=== PATIENT | male | born 1945 | race Hispanic/Latino ===

== ENCOUNTER 2020-06-30 12:56 | Observation (INO) | payer MEDICARE, OTHER ==
[~2020-06-30] VITALS: Ht 165.1 cm; Wt 68.0 kg
[2020-06-30 14:06] LABS: BASOPHILS % 0.5 % (0.0-1.0); EOSINOPHILS # (AUTO) 0.4 (0.0-0.4); EOSINOPHILS % 4.9 % (0.0-6.0); HEMATOCRIT 45.3 % (38.2-49.6); HEMOGLOBIN 14.3 g/dL (14.0-18.0); LYMPHOCYTES # (AUTO) 2.3 (1.0-3.2); MEAN CORPUSCULAR HEMOGLOBIN 26.5 pg (28-32); MEAN CORPUSCULAR HGB CONC 31.6 g/dL (31-35); MEAN CORPUSCULAR VOLUME 83.9 fL (81-99); MONOCYTES # (AUTO) 0.6 (0.2-0.8); MONOCYTES % 8.1 % (4.4-11.3); NEUTROPHILS # (AUTO) 4.5 (2.1-6.9); NEUTROPHILS % 57.2 % (38.7-80.0); PLATELET COUNT 314 x10e3/uL (140-360); RED CELL DISTRIBUTION WIDTH 15.8 % (11.7-14.4)
[2020-06-30 14:22] LABS: ANION GAP 15.5 mmol/L (8-16); BLOOD UREA NITROGEN 12 mg/dL (7-26); BUN/CREATININE RATIO 15 (6-25); CARBON DIOXIDE 25 mmol/L (22-29); CHLORIDE 103 mmol/L (98-107); CREATININE, SERUM 0.79 mg/dL (0.72-1.25); EST GLOMERULAR FILTRATION RATE > 60 ML/MIN (60-); GLUCOSE 232 mg/dL (74-118); POTASSIUM 4.5 mmol/L (3.5-5.1); SODIUM 139 mmol/L (136-145)
[2020-06-30 15:30] VITALS: BP 141/74
[2020-06-30] MEDS ORDERED: QUETIAPINE FUM100 MG PEG (16:32)
[2020-06-30] MEDS ORDERED: METFORMIN HCL500 MG PEG (16:32)
[2020-06-30] MEDS ORDERED: DONEPEZIL HCL10 MG PEG (16:32)
[2020-06-30] MEDS ORDERED: METOPROLOL TART50 MG PEG (16:32)
[2020-06-30] MEDS ORDERED: MIRTAZAPINE45 MG PEG (16:32)
[2020-06-30] MEDS ORDERED: OMEPRAZOLE40 MG PEG (16:32)
[2020-06-30] MEDS ORDERED: CLOPIDOGREL75 MG PEG (16:32)
[2020-06-30] MEDS ORDERED: JANUVIA100 MG PEG (16:32)
[2020-06-30] MEDS ORDERED: DEXTROSE 50% SYRINGE 50 ML IV PRN (18:30)
[2020-06-30] MEDS: SODIUM CHLORIDE 0.9% 1000ML 1,000 ML IV SCH ×2 (18:35→21:57)
[2020-06-30] MEDS ORDERED: HYDRALAZINE HCL 20 MG/ML VIAL IV PRN (19:00)
[2020-06-30 20:00] VITALS: BP 95/60
[2020-06-30] MEDS: INSULIN REGULAR, HUMAN 100 UNIT/1 ML 3ML VIAL SQ SCH (20:54)
[2020-06-30 21:00] VITALS: BP 95/60
[2020-06-30] MEDS ORDERED: MIRTAZAPINE 15 MG TAB PEG SCH (21:00)
[2020-06-30] MEDS ORDERED: DONEPEZIL HCL 5 MG TAB PEG SCH (21:00)
[2020-07-01] VITALS (7 sets, daily range): BP systolic 114–180; BP diastolic 58–89
[2020-07-01] MEDS ORDERED: GUAIFENESIN/DEXTROMETHORPHAN LIQD 5 ML UDC NG PRN (03:45)
[2020-07-01] MEDS: SODIUM CHLORIDE 0.9% 1000ML 1,000 ML IV SCH (06:00)
[2020-07-01 06:12] LABS: BASOPHILS % 0.4 % (0.0-1.0); EOSINOPHILS # (AUTO) 0.5 (0.0-0.4); EOSINOPHILS % 5.5 % (0.0-6.0); HEMATOCRIT 43.1 % (38.2-49.6); HEMOGLOBIN 13.6 g/dL (14.0-18.0); LYMPHOCYTES # (AUTO) 2.7 (1.0-3.2); LYMPHOCYTES % 28.8 % (18.0-39.1); MEAN CORPUSCULAR HEMOGLOBIN 25.9 pg (28-32); MEAN CORPUSCULAR HGB CONC 31.6 g/dL (31-35); MEAN CORPUSCULAR VOLUME 82.1 fL (81-99); MONOCYTES # (AUTO) 0.8 (0.2-0.8); MONOCYTES % 9.1 % (4.4-11.3); NEUTROPHILS # (AUTO) 5.2 (2.1-6.9); NEUTROPHILS % 55.9 % (38.7-80.0); PLATELET COUNT 286 x10e3/uL (140-360); RED BLOOD COUNT 5.25 x10e6/uL (4.3-5.7); RED CELL DISTRIBUTION WIDTH 15.8 % (11.7-14.4)
[2020-07-01 06:37] LABS: INR 0.95; PARTIAL THROMBOPLASTIN TIME 27.6 seconds (23.8-35.5); PROTHROMBIN TIME 13.2 seconds (11.9-14.5)
[2020-07-01 06:41] LABS: ANION GAP 14.3 mmol/L (8-16); BLOOD UREA NITROGEN 12 mg/dL (7-26); BUN/CREATININE RATIO 18 (6-25); CALCIUM 8.6 mg/dL (8.4-10.2); CARBON DIOXIDE 21 mmol/L (22-29); CHLORIDE 107 mmol/L (98-107); CREATININE, SERUM 0.67 mg/dL (0.72-1.25); EST GLOMERULAR FILTRATION RATE > 60 ML/MIN (60-); GLUCOSE 188 mg/dL (74-118); POTASSIUM 4.3 mmol/L (3.5-5.1); SODIUM 138 mmol/L (136-145)
[2020-07-01] MEDS: INSULIN REGULAR, HUMAN 100 UNIT/1 ML 3ML VIAL SQ SCH ×3 (07:30→16:30)
[2020-07-01] MEDS ORDERED: METOPROLOL TARTRATE 50 MG TAB PEG SCH (09:00)
[2020-07-01] MEDS ORDERED: PANTOPRAZOLE SOD 40 MG TABEC PO SCH (09:00)
[2020-07-01] MEDS ORDERED: SITAGLIPTIN 100 MG TAB PEG SCH (09:00)
[2020-07-01] MEDS: QUETIAPINE FUMARATE 100 MG TAB PEG SCH ×2 (09:31→17:49)
[2020-07-01] MEDS ORDERED: ALBUTEROL SULF 0.083% NEB SOLN 3 ML NEB ONE (12:22)
== END 2020-07-01 19:42 | disposition home or self-care (01) ==
LOC: ER 13:01 → ERHOLD 13:37 → INTOOBSV 13:37 → MED/SURG3 15:41
PROVIDERS: ADMIT Internal Medicine; ATTEND Internal Medicine
DX: K94.23 Gastrostomy malfunction (principal); R13.10 Dysphagia, unspecified; I69.398 Other sequelae of cerebral infarction; I10 Essential (primary) hypertension; E11.9 Type 2 diabetes mellitus without complications; J40 Bronchitis, not specified as acute or chronic; I69.30 Unspecified sequelae of cerebral infarction; Z86.711 Personal history of pulmonary embolism; Z79.84 Long term (current) use of oral hypoglycemic drugs; I67.2 Cerebral atherosclerosis; F01.50 Vascular dementia, unspecified severity, without behavioral disturbance, psychotic disturbance, mood disturbance, and anxiety; K44.9 Diaphragmatic hernia without obstruction or gangrene; Z20.822 Contact with and (suspected) exposure to COVID-19
CPT/HCPCS: 36415 ×2; 43241; 71045; 80048 ×2; 82948 ×2; 85025 ×2; 85610; 85730; 96372; 99251; 99284; G0378 ×2; J1817; J7030 ×2; S0164; U0002; 43235; 43246

== ENCOUNTER 2020-10-04 17:20 | Emergency (ER) | payer MEDICARE, OTHER ==
[~2020-10-04] VITALS: Ht 167.6 cm; Wt 68.0 kg
[~2020-10-04 17:20] MED LIST: CLOPIDOGREL75 MG PEG; DONEPEZIL HCL10 MG PEG; JANUVIA100 MG PEG; METFORMIN HCL500 MG PEG; METOPROLOL TART50 MG PEG; MIRTAZAPINE45 MG PEG; OMEPRAZOLE40 MG PEG; QUETIAPINE FUM100 MG PEG
[2020-10-04] MEDS ORDERED: CEFEPIME HCL 1 GM VIAL IV ONE (18:00)
[2020-10-04] MEDS ORDERED: SODIUM CHLORIDE 0.9% 1000ML 1,000 ML IV ONE (18:00)
[2020-10-04] MEDS ORDERED: CEFEPIME HCL 1GM 1 GM in SODIUM CHLORIDE 0.9% 50ML 50 ML IV ONE ×2 (18:15→21:00)
[2020-10-04] MEDS ORDERED: VANCOMYCIN 1GM/NS 250 ML 250 ML IV ONE (18:15)
[2020-10-04 18:40] LABS: BASOPHILS % 0.4 % (0.0-1.0); EOSINOPHILS # (AUTO) 0.4 (0.0-0.4); EOSINOPHILS % 4.6 % (0.0-6.0); HEMATOCRIT 49.5 % (38.2-49.6); HEMOGLOBIN 15.6 g/dL (14.0-18.0); LYMPHOCYTES # (AUTO) 2.2 (1.0-3.2); LYMPHOCYTES % 26.6 % (18.0-39.1); MEAN CORPUSCULAR HEMOGLOBIN 25.9 pg (28-32); MEAN CORPUSCULAR HGB CONC 31.5 g/dL (31-35); MEAN CORPUSCULAR VOLUME 82.1 fL (81-99); MONOCYTES # (AUTO) 0.6 (0.2-0.8); MONOCYTES % 7.1 % (4.4-11.3); NEUTROPHILS # (AUTO) 5.1 (2.1-6.9); NEUTROPHILS % 60.9 % (38.7-80.0); PLATELET COUNT 335 x10e3/uL (140-360); RED BLOOD COUNT 6.03 x10e6/uL (4.3-5.7); RED CELL DISTRIBUTION WIDTH 15.9 % (11.7-14.4)
[2020-10-04 18:59] LABS: ALANINE AMINOTRANSFERASE 34 IU/L (0-55); ALBUMIN 3.8 g/dL (3.5-5.0); ALBUMIN/GLOBULIN RATIO 0.8 (0.8-2.0); ALKALINE PHOSPHATASE 122 IU/L (40-150); ANION GAP 19.4 mmol/L (8-16); BLOOD UREA NITROGEN 17 mg/dL (7-26); BUN/CREATININE RATIO 20 (6-25); CARBON DIOXIDE 22 mmol/L (22-29); CHLORIDE 99 mmol/L (98-107); CREATININE, SERUM 0.87 mg/dL (0.72-1.25); EST GLOMERULAR FILTRATION RATE > 60 ML/MIN (60-); GLUCOSE 203 mg/dL (74-118); POTASSIUM 4.4 mmol/L (3.5-5.1); SODIUM 136 mmol/L (136-145)
[2020-10-04] MEDS ORDERED: SODIUM CHLORIDE 0.9% 1000ML 1,000 ML IV SCH (19:15)
== END 2020-10-05 00:42 | disposition other institution (70) ==
LOC: ER 17:40
DX: A41.9 Sepsis, unspecified organism (principal); E11.52 Type 2 diabetes mellitus with diabetic peripheral angiopathy with gangrene; E11.65 Type 2 diabetes mellitus with hyperglycemia; I96 Gangrene, not elsewhere classified; L03.116 Cellulitis of left lower limb; F03.90 Unspecified dementia, unspecified severity, without behavioral disturbance, psychotic disturbance, mood disturbance, and anxiety; Z20.822 Contact with and (suspected) exposure to COVID-19; E03.9 Hypothyroidism, unspecified; E78.5 Hyperlipidemia, unspecified
CPT/HCPCS: 36415; 71045; 73630; 80053; 83605; 85025; 87040; 99284; J0692; J3370; J7030; U0002

== ENCOUNTER 2020-10-28 16:28 | Inpatient (IN) | payer MEDICARE, OTHER ==
[~2020-10-28] VITALS: Ht 167.6 cm; Wt 68.0 kg
[2020-10-28 17:12] LABS: BASOPHILS % 0.2 % (0.0-1.0); EOSINOPHILS # (AUTO) 0.2 (0.0-0.4); EOSINOPHILS % 2.2 % (0.0-6.0); HEMATOCRIT 39.9 % (38.2-49.6); HEMOGLOBIN 12.8 g/dL (14.0-18.0); LYMPHOCYTES # (AUTO) 1.6 (1.0-3.2); LYMPHOCYTES % 16.4 % (18.0-39.1); MEAN CORPUSCULAR HEMOGLOBIN 26.3 pg (28-32); MEAN CORPUSCULAR HGB CONC 32.1 g/dL (31-35); MEAN CORPUSCULAR VOLUME 82.1 fL (81-99); MONOCYTES # (AUTO) 1.2 (0.2-0.8); MONOCYTES % 11.6 % (4.4-11.3); NEUTROPHILS # (AUTO) 6.8 (2.1-6.9); NEUTROPHILS % 69.2 % (38.7-80.0); PLATELET COUNT 329 x10e3/uL (140-360); RED BLOOD COUNT 4.86 x10e6/uL (4.3-5.7); RED CELL DISTRIBUTION WIDTH 17.2 % (11.7-14.4)
[2020-10-28] MEDS ORDERED: ACETAMINOPHEN 650 MG SUPP PR ONE (17:15)
[2020-10-28] MEDS ORDERED: SODIUM CHLORIDE 0.9% 1000ML 1,000 ML IV ONE ×2 (17:15→19:30)
[2020-10-28] MEDS: CEFEPIME 1 GM in SODIUM CHLORIDE 0.9% 50ML 50 ML IV SCH (17:24)
[2020-10-28 17:33] LABS: ALANINE AMINOTRANSFERASE 116 IU/L (0-55); ALBUMIN 2.8 g/dL (3.5-5.0); ALBUMIN/GLOBULIN RATIO 0.6 (0.8-2.0); ALKALINE PHOSPHATASE 116 IU/L (40-150); ANION GAP 15.5 mmol/L (8-16); BLOOD UREA NITROGEN 11 mg/dL (7-26); BUN/CREATININE RATIO 15 (6-25); CALCIUM 9.1 mg/dL (8.4-10.2); CARBON DIOXIDE 24 mmol/L (22-29); CHLORIDE 100 mmol/L (98-107); CREATINE KINASE 113 IU/L (30-200); CREATININE, SERUM 0.74 mg/dL (0.72-1.25); EST GLOMERULAR FILTRATION RATE > 60 ML/MIN (60-); GLUCOSE 277 mg/dL (74-118); POTASSIUM 4.5 mmol/L (3.5-5.1); SODIUM 135 mmol/L (136-145)
[2020-10-28 17:58] LABS: CLARITY,URINE SL CLOUDY (CLEAR); COLOR,URINE YELLOW (YELLOW); KETONES,URINE NEGATIVE (NEGATIVE); LEUKOCYTE ESTERASE ,URINE NEGATIVE (NEGATIVE); NITRITE,URINE NEGATIVE (NEGATIVE); PROTEIN,URINE DIPSTICK NEGATIVE (NEGATIVE); URINE UROBILINOGEN 1 mg/dL (0.2 - 1)
[2020-10-28 18:11] LABS: AMORPHOUS SEDIMENT,URINE FEW (FEW); BACTERIA,URINE MODERATE /HPF; EPITHELIAL CELLS,URINE FEW /LPF; MUCUS,URINE MODERATE (RARE)
[2020-10-28] MEDS: SODIUM CHLORIDE 0.9% 1000ML 1,000 ML IV SCH (18:59)
[2020-10-28] MEDS ORDERED: VANCOMYCIN 1GM/NS 250 ML 250 ML IV ONE (19:00)
[2020-10-28] MEDS ORDERED: DEXTROSE 50% SYRINGE 50 ML IV PRN (19:30)
[2020-10-28] MEDS ORDERED: ONDANSETRON HCL INJ 2MG/ML 2ML 2 MG/ML VIAL IV PRN (19:30)
[2020-10-28] MEDS: VANCOMYCIN 1GM/NS 250 ML 250 ML IV SCH (20:20)
[2020-10-28] MEDS: INSULIN REGULAR, HUMAN 100 UNIT/1 ML 3ML VIAL SQ SCH (21:00)
[2020-10-29] VITALS (8 sets, daily range): BP systolic 108–149; BP diastolic 65–92
[2020-10-29] MEDS: CEFEPIME 1 GM in SODIUM CHLORIDE 0.9% 50ML 50 ML IV SCH ×3 (01:24→16:50)
[2020-10-29] MEDS: ACETAMINOPHEN 650 MG SUPP PR PRN (01:24)
[2020-10-29 03:56] LABS: CREATINE KINASE MB 1.5 ng/mL (0-5.0)
[2020-10-29] MEDS ORDERED: OSMOLITE (04:19)
[2020-10-29 05:26] LABS: BASOPHILS % 0.3 % (0.0-1.0); EOSINOPHILS # (AUTO) 0.2 (0.0-0.4); EOSINOPHILS % 2.2 % (0.0-6.0); HEMATOCRIT 34.9 % (38.2-49.6); HEMOGLOBIN 10.8 g/dL (14.0-18.0); LYMPHOCYTES # (AUTO) 1.6 (1.0-3.2); LYMPHOCYTES % 15.7 % (18.0-39.1); MEAN CORPUSCULAR HGB CONC 30.9 g/dL (31-35); MEAN CORPUSCULAR VOLUME 83.9 fL (81-99); MONOCYTES % 9.6 % (4.4-11.3); NEUTROPHILS # (AUTO) 7.2 (2.1-6.9); NEUTROPHILS % 71.8 % (38.7-80.0); PLATELET COUNT 275 x10e3/uL (140-360); RED BLOOD COUNT 4.16 x10e6/uL (4.3-5.7); RED CELL DISTRIBUTION WIDTH 16.8 % (11.7-14.4)
[2020-10-29] MEDS: SODIUM CHLORIDE 0.9% 1000ML 1,000 ML IV SCH ×3 (05:27→20:54)
[2020-10-29 05:51] LABS: ALANINE AMINOTRANSFERASE 94 IU/L (0-55); ALBUMIN 2.3 g/dL (3.5-5.0); ALBUMIN/GLOBULIN RATIO 0.6 (0.8-2.0); ALKALINE PHOSPHATASE 99 IU/L (40-150); BLOOD UREA NITROGEN 7 mg/dL (7-26); BUN/CREATININE RATIO 14 (6-25); CALCIUM 7.9 mg/dL (8.4-10.2); CARBON DIOXIDE 18 mmol/L (22-29); CHLORIDE 108 mmol/L (98-107); CREATININE, SERUM 0.51 mg/dL (0.72-1.25); EST GLOMERULAR FILTRATION RATE > 60 ML/MIN (60-); GLUCOSE 191 mg/dL (74-118); SODIUM 135 mmol/L (136-145)
[2020-10-29] MEDS: INSULIN REGULAR, HUMAN 100 UNIT/1 ML 3ML VIAL SQ SCH ×4 (07:30→20:37)
[2020-10-29] MEDS: VANCOMYCIN 1GM/NS 250 ML 250 ML IV SCH ×2 (07:30→19:30)
[2020-10-29] MEDS ORDERED: HYDRALAZINE HCL 20 MG/ML VIAL IV PRN (21:00)
[2020-10-29] MEDS: MIRTAZAPINE 15 MG TAB PO SCH (21:00)
[2020-10-29] MEDS: METOPROLOL TARTRATE 25 MG TAB PEG SCH (23:50)
[2020-10-30] VITALS (7 sets, daily range): BP systolic 119–164; BP diastolic 76–95
[2020-10-30] MEDS: CEFEPIME 1 GM in SODIUM CHLORIDE 0.9% 50ML 50 ML IV SCH ×3 (00:08→16:53)
[2020-10-30] MEDS: INSULIN REGULAR, HUMAN 100 UNIT/1 ML 3ML VIAL SQ SCH ×4 (07:30→21:40)
[2020-10-30] MEDS: VANCOMYCIN 1GM/NS 250 ML 250 ML IV SCH ×2 (07:30→20:38)
[2020-10-30] MEDS: MUPIROCIN 2% OINT 22 GM TUBE TOP SCH (09:00)
[2020-10-30] MEDS: CLOPIDOGREL BISULFATE 75 MG TAB PEG SCH (09:00)
[2020-10-30] MEDS ORDERED: METOPROLOL TARTRATE 50 MG TAB PEG SCH (09:00)
[2020-10-30] MEDS: BALSAM PERU/CASTOR OIL 60 GM OINT...G. TP SCH (09:00)
[2020-10-30] MEDS: SODIUM CHLORIDE 0.9% 1000ML 1,000 ML IV SCH (13:34)
[2020-10-30] MEDS: ENOXAPARIN SOD INJ 40 MG/0.4 ML SYR SC SCH (16:53)
[2020-10-30] MEDS: MIRTAZAPINE 15 MG TAB PO SCH (20:40)
[2020-10-31] VITALS (8 sets, daily range): BP systolic 134–156; BP diastolic 56–76
[2020-10-31] MEDS: CEFEPIME 1 GM in SODIUM CHLORIDE 0.9% 50ML 50 ML IV SCH ×3 (01:03→16:24)
[2020-10-31 06:16] LABS: ALANINE AMINOTRANSFERASE 70 IU/L (0-55); ALBUMIN 2.4 g/dL (3.5-5.0); ALBUMIN/GLOBULIN RATIO 0.6 (0.8-2.0); ALKALINE PHOSPHATASE 105 IU/L (40-150); ANION GAP 12.9 mmol/L (8-16); BLOOD UREA NITROGEN 5 mg/dL (7-26); BUN/CREATININE RATIO 9 (6-25); CALCIUM 7.7 mg/dL (8.4-10.2); CARBON DIOXIDE 22 mmol/L (22-29); CHLORIDE 105 mmol/L (98-107); CREATININE, SERUM 0.57 mg/dL (0.72-1.25); EST GLOMERULAR FILTRATION RATE > 60 ML/MIN (60-); GLUCOSE 162 mg/dL (74-118); SODIUM 137 mmol/L (136-145)
[2020-10-31 06:45] LABS: POTASSIUM 2.9 mmol/L (3.5-5.1)
[2020-10-31] MEDS: SODIUM CHLORIDE 0.9% 1000ML 1,000 ML IV SCH ×2 (07:15→23:08)
[2020-10-31] MEDS: INSULIN REGULAR, HUMAN 100 UNIT/1 ML 3ML VIAL SQ SCH ×4 (07:30→21:40)
[2020-10-31] MEDS: VANCOMYCIN 1GM/NS 250 ML 250 ML IV SCH ×2 (07:30→20:55)
[2020-10-31] MEDS: POTASSIUM CHLORIDE 20MEQ/100ML 100 ML IV SCH ×2 (08:00→10:00)
[2020-10-31] MEDS: BALSAM PERU/CASTOR OIL 60 GM OINT...G. TP SCH (09:00)
[2020-10-31] MEDS: MUPIROCIN 2% OINT 22 GM TUBE TOP SCH (09:00)
[2020-10-31] MEDS: CLOPIDOGREL BISULFATE 75 MG TAB PEG SCH (09:00)
[2020-10-31] MEDS: METOPROLOL TARTRATE 25 MG TAB PEG SCH (11:45)
[2020-10-31] MEDS: ACETAMINOPHEN 650 MG SUPP PR PRN (15:40)
[2020-10-31] MEDS: ENOXAPARIN SOD INJ 40 MG/0.4 ML SYR SC SCH (16:24)
[2020-10-31] MEDS: MIRTAZAPINE 15 MG TAB PO SCH (20:55)
[2020-11-01] VITALS (8 sets, daily range): BP systolic 120–156; BP diastolic 52–87
[2020-11-01] MEDS: METOPROLOL TARTRATE 25 MG TAB PEG SCH ×3 (00:41→11:45)
[2020-11-01] MEDS: CEFEPIME 1 GM in SODIUM CHLORIDE 0.9% 50ML 50 ML IV SCH ×3 (01:02→17:16)
[2020-11-01] MEDS ORDERED: ONDANSETRON HCL 4 MG ORAL DISINTEGRATING TAB PO PRN (08:00)
[2020-11-01] MEDS: CLOPIDOGREL BISULFATE 75 MG TAB PEG SCH (09:17)
[2020-11-01] MEDS: VANCOMYCIN 1GM/NS 250 ML 250 ML IV SCH ×2 (09:17→20:27)
[2020-11-01] MEDS: MUPIROCIN 2% OINT 22 GM TUBE TOP SCH (09:17)
[2020-11-01] MEDS: BALSAM PERU/CASTOR OIL 60 GM OINT...G. TP SCH (09:17)
[2020-11-01] MEDS ORDERED: POTASSIUM CHLORIDE 20MEQ/100ML 100 ML IV ONE (11:00)
[2020-11-01] MEDS: INSULIN REGULAR, HUMAN 100 UNIT/1 ML 3ML VIAL SQ SCH ×4 (11:07→20:27)
[2020-11-01] MEDS: SODIUM CHLORIDE 0.9% 1000ML 1,000 ML IV SCH (15:00)
[2020-11-01] MEDS: ENOXAPARIN SOD INJ 40 MG/0.4 ML SYR SC SCH (17:16)
[2020-11-01] MEDS: MIRTAZAPINE 15 MG TAB PO SCH (20:27)
[2020-11-02] VITALS (7 sets, daily range): BP systolic 91–137; BP diastolic 43–81
[2020-11-02] MEDS: SODIUM CHLORIDE 0.9% 1000ML 1,000 ML IV SCH ×3 (01:21→20:13)
[2020-11-02] MEDS: CEFEPIME 1 GM in SODIUM CHLORIDE 0.9% 50ML 50 ML IV SCH ×3 (01:21→16:20)
[2020-11-02] MEDS: INSULIN REGULAR, HUMAN 100 UNIT/1 ML 3ML VIAL SQ SCH ×4 (07:30→21:50)
[2020-11-02] MEDS: BALSAM PERU/CASTOR OIL 60 GM OINT...G. TP SCH (08:07)
[2020-11-02] MEDS: MUPIROCIN 2% OINT 22 GM TUBE TOP SCH (08:07)
[2020-11-02] MEDS: CLOPIDOGREL BISULFATE 75 MG TAB PEG SCH (08:07)
[2020-11-02] MEDS: VANCOMYCIN 1GM/NS 250 ML 250 ML IV SCH (08:07)
[2020-11-02] MEDS: ASPIRIN 81 MG CHEW TAB PO SCH (08:07)
[2020-11-02] MEDS ORDERED: Vancomycin IV 1 GM in SODIUM CHLORIDE 0.9% 250ML 250 ML IV SCH (13:30)
[2020-11-02] MEDS: METOPROLOL TARTRATE 25 MG TAB PEG SCH (16:19)
[2020-11-02] MEDS: ENOXAPARIN SOD INJ 40 MG/0.4 ML SYR SC SCH (16:20)
[2020-11-02] MEDS: MIRTAZAPINE 15 MG TAB PO SCH (20:13)
[2020-11-02] MEDS: Vancomycin IV 1 GM in SODIUM CHLORIDE 0.9% 250ML 250 ML IV SCH (20:13)
[2020-11-03] VITALS (9 sets, daily range): BP systolic 120–171; BP diastolic 57–111
[2020-11-03] MEDS: METOPROLOL TARTRATE 25 MG TAB PEG SCH ×3 (00:33→23:45)
[2020-11-03] MEDS: CEFEPIME 1 GM in SODIUM CHLORIDE 0.9% 50ML 50 ML IV SCH ×4 (00:34→23:57)
[2020-11-03] MEDS: SODIUM CHLORIDE 0.9% 1000ML 1,000 ML IV SCH ×2 (00:34→14:17)
[2020-11-03] MEDS: ACETAMINOPHEN 650 MG SUPP PR PRN (01:04)
[2020-11-03 05:17] LABS: BASOPHILS % 0.2 % (0.0-1.0); EOSINOPHILS # (AUTO) 0.5 (0.0-0.4); EOSINOPHILS % 3.8 % (0.0-6.0); HEMOGLOBIN 10.6 g/dL (14.0-18.0); LYMPHOCYTES # (AUTO) 1.7 (1.0-3.2); LYMPHOCYTES % 13.3 % (18.0-39.1); MEAN CORPUSCULAR HEMOGLOBIN 26.4 pg (28-32); MEAN CORPUSCULAR HGB CONC 32.1 g/dL (31-35); MEAN CORPUSCULAR VOLUME 82.1 fL (81-99); MONOCYTES # (AUTO) 0.8 (0.2-0.8); MONOCYTES % 6.6 % (4.4-11.3); NEUTROPHILS # (AUTO) 9.5 (2.1-6.9); NEUTROPHILS % 75.5 % (38.7-80.0); PLATELET COUNT 277 x10e3/uL (140-360); RED BLOOD COUNT 4.02 x10e6/uL (4.3-5.7); RED CELL DISTRIBUTION WIDTH 16.8 % (11.7-14.4)
[2020-11-03] MEDS: BALSAM PERU/CASTOR OIL 60 GM OINT...G. TP SCH (06:05)
[2020-11-03] MEDS: INSULIN REGULAR, HUMAN 100 UNIT/1 ML 3ML VIAL SQ SCH ×4 (07:30→21:00)
[2020-11-03] MEDS: Vancomycin IV 1 GM in SODIUM CHLORIDE 0.9% 250ML 250 ML IV SCH ×2 (08:30→21:30)
[2020-11-03] MEDS: ASPIRIN 81 MG CHEW TAB PO SCH (08:39)
[2020-11-03] MEDS: CLOPIDOGREL BISULFATE 75 MG TAB PEG SCH (08:39)
[2020-11-03 09:14] LABS: ALANINE AMINOTRANSFERASE 40 IU/L (0-55); ALBUMIN 2.3 g/dL (3.5-5.0); ALBUMIN/GLOBULIN RATIO 0.6 (0.8-2.0); ALKALINE PHOSPHATASE 86 IU/L (40-150); ANION GAP 9.9 mmol/L (8-16); BLOOD UREA NITROGEN 5 mg/dL (7-26); BUN/CREATININE RATIO 9 (6-25); CARBON DIOXIDE 23 mmol/L (22-29); CHLORIDE 107 mmol/L (98-107); CREATININE, SERUM 0.57 mg/dL (0.72-1.25); EST GLOMERULAR FILTRATION RATE > 60 ML/MIN (60-); GLUCOSE 161 mg/dL (74-118); SODIUM 137 mmol/L (136-145)
[2020-11-03 09:17] LABS: POTASSIUM 2.9 mmol/L (3.5-5.1)
[2020-11-03] MEDS ORDERED: POTASSIUM CHLORIDE 20MEQ/15ML UDC NG ONE ×2 (10:00→12:00)
[2020-11-03] MEDS ORDERED: KCL 20 MEQ PACKET/ ORAL SOLN NG ONE ×2 (10:15→12:15)
[2020-11-03] MEDS: MUPIROCIN 2% OINT 22 GM TUBE TOP SCH (12:58)
[2020-11-03] MEDS: ENOXAPARIN SOD INJ 40 MG/0.4 ML SYR SC SCH (17:04)
[2020-11-03] MEDS: CHOLESTYRAMINE 4 GM PACKET PO SCH (17:04)
[2020-11-03] MEDS: MIRTAZAPINE 15 MG TAB PO SCH (21:30)
[2020-11-04] VITALS (7 sets, daily range): BP systolic 111–154; BP diastolic 42–93
[2020-11-04] MEDS ORDERED: ONDANSETRON HCL INJ 2MG/ML 2ML 2 MG/ML VIAL IV PRN (02:30)
[2020-11-04 05:34] LABS: BASOPHILS % 0.2 % (0.0-1.0); EOSINOPHILS % 0.1 % (0.0-6.0); HEMATOCRIT 37.2 % (38.2-49.6); HEMOGLOBIN 12.2 g/dL (14.0-18.0); LYMPHOCYTES # (AUTO) 1.7 (1.0-3.2); LYMPHOCYTES % 11.1 % (18.0-39.1); MEAN CORPUSCULAR HEMOGLOBIN 26.6 pg (28-32); MEAN CORPUSCULAR HGB CONC 32.8 g/dL (31-35); MONOCYTES # (AUTO) 0.7 (0.2-0.8); MONOCYTES % 4.8 % (4.4-11.3); NEUTROPHILS # (AUTO) 12.4 (2.1-6.9); NEUTROPHILS % 83.3 % (38.7-80.0); PLATELET COUNT 344 x10e3/uL (140-360); RED BLOOD COUNT 4.59 x10e6/uL (4.3-5.7)
[2020-11-04 06:33] LABS: ANION GAP 14.8 mmol/L (8-16); BLOOD UREA NITROGEN 5 mg/dL (7-26); BUN/CREATININE RATIO 9 (6-25); CALCIUM 8.3 mg/dL (8.4-10.2); CARBON DIOXIDE 21 mmol/L (22-29); CHLORIDE 103 mmol/L (98-107); CREATININE, SERUM 0.57 mg/dL (0.72-1.25); EST GLOMERULAR FILTRATION RATE > 60 ML/MIN (60-); GLUCOSE 221 mg/dL (74-118); POTASSIUM 3.8 mmol/L (3.5-5.1); SODIUM 135 mmol/L (136-145)
[2020-11-04] MEDS: INSULIN REGULAR, HUMAN 100 UNIT/1 ML 3ML VIAL SQ SCH ×4 (07:30→20:41)
[2020-11-04] MEDS: Vancomycin IV 1 GM in SODIUM CHLORIDE 0.9% 250ML 250 ML IV SCH ×2 (08:23→19:30)
[2020-11-04] MEDS: CLOPIDOGREL BISULFATE 75 MG TAB PEG SCH (08:30)
[2020-11-04] MEDS: BALSAM PERU/CASTOR OIL 60 GM OINT...G. TP SCH (08:30)
[2020-11-04] MEDS: MUPIROCIN 2% OINT 22 GM TUBE TOP SCH (08:30)
[2020-11-04] MEDS: CHOLESTYRAMINE 4 GM PACKET PO SCH ×2 (08:30→17:10)
[2020-11-04] MEDS: ASPIRIN 81 MG CHEW TAB PO SCH (08:30)
[2020-11-04] MEDS ORDERED: SODIUM CHLORIDE 0.9% 250ML 250 ML IV ONE (10:00)
[2020-11-04] MEDS: CEFEPIME 1 GM in SODIUM CHLORIDE 0.9% 50ML 50 ML IV SCH ×2 (10:00→17:10)
[2020-11-04] MEDS: METOPROLOL TARTRATE 25 MG TAB PEG SCH ×2 (12:06→23:45)
[2020-11-04] MEDS: SODIUM CHLORIDE 0.9% 1000ML 1,000 ML IV SCH (15:08)
[2020-11-04] MEDS: ENOXAPARIN SOD INJ 40 MG/0.4 ML SYR SC SCH (16:39)
[2020-11-04] MEDS: MIRTAZAPINE 15 MG TAB PO SCH (20:49)
[2020-11-05] VITALS (17 sets, daily range): BP systolic 85–162; BP diastolic 46–89
[2020-11-05] MEDS: SODIUM CHLORIDE 0.9% 1000ML 1,000 ML IV SCH ×3 (01:00→21:47)
[2020-11-05] MEDS: CEFEPIME 1 GM in SODIUM CHLORIDE 0.9% 50ML 50 ML IV SCH ×3 (01:00→17:03)
[2020-11-05] MEDS: METOPROLOL TARTRATE 25 MG TAB PEG SCH ×2 (01:01→13:25)
[2020-11-05] MEDS: MUPIROCIN 2% OINT 22 GM TUBE TOP SCH ×2 (05:18→13:20)
[2020-11-05] MEDS ORDERED: MIDAZOLAM HCL 2 MG/2 ML VIAL ONE (06:50)
[2020-11-05] MEDS ORDERED: HEPARIN SOD (PORCINE) 1000 UNIT/ML 30ML ONE (06:50)
[2020-11-05] MEDS ORDERED: FENTANYL CITRATE/PF 100MCG/2 ML INJ ONE (06:51)
[2020-11-05] MEDS ORDERED: LIDOCAINE HCL 2% LOCAL 20 ML VIAL ONE (06:51)
[2020-11-05] MEDS ORDERED: IOPAMIDOL 300MG/ML 100 ML INFUS..BTL IV ONE (06:52)
[2020-11-05] MEDS ORDERED: SODIUM CHLORIDE 0.9% 1000ML 0 ML ONE (06:52)
[2020-11-05] MEDS ORDERED: HEPARIN SOD/SOD CHLORIDE 2,000 ML ONE (06:52)
[2020-11-05] MEDS ORDERED: NITROGLYCERIN/D5W 200 MCG/ML 250 ML ONE (06:52)
[2020-11-05] MEDS: INSULIN REGULAR, HUMAN 100 UNIT/1 ML 3ML VIAL SQ SCH ×4 (07:30→20:43)
[2020-11-05] MEDS: Vancomycin IV 1 GM in SODIUM CHLORIDE 0.9% 250ML 250 ML IV SCH ×2 (07:30→12:15)
[2020-11-05] MEDS: ASPIRIN 81 MG CHEW TAB PO SCH (08:52)
[2020-11-05] MEDS: CHOLESTYRAMINE 4 GM PACKET PO SCH ×2 (08:52→17:03)
[2020-11-05] MEDS: CLOPIDOGREL BISULFATE 75 MG TAB PEG SCH (08:52)
[2020-11-05] MEDS ORDERED: SODIUM CHLORIDE 0.9% 1000ML 1,000 ML ONE (10:47)
[2020-11-05] MEDS: BALSAM PERU/CASTOR OIL 60 GM OINT...G. TP SCH (13:20)
[2020-11-05] MEDS ORDERED: LACTATED RINGER'S 500 ML INJ ONE (14:30)
[2020-11-05] MEDS: ENOXAPARIN SOD INJ 40 MG/0.4 ML SYR SC SCH (17:00)
[2020-11-05] MEDS: MIRTAZAPINE 15 MG TAB PO SCH (21:47)
[2020-11-06] VITALS (9 sets, daily range): BP systolic 128–173; BP diastolic 60–81
[2020-11-06] MEDS ORDERED: Vancomycin IV 1 GM in SODIUM CHLORIDE 0.9% 250ML 250 ML IV SCH ×2
[2020-11-06] MEDS: METOPROLOL TARTRATE 25 MG TAB PEG SCH (01:06)
[2020-11-06] MEDS: CEFEPIME 1 GM in SODIUM CHLORIDE 0.9% 50ML 50 ML IV SCH ×3 (01:08→17:32)
[2020-11-06] MEDS: SODIUM CHLORIDE 0.9% 1000ML 1,000 ML IV SCH ×3 (03:55→23:55)
[2020-11-06 06:27] LABS: BASOPHILS % 0.4 % (0.0-1.0); EOSINOPHILS # (AUTO) 0.3 (0.0-0.4); EOSINOPHILS % 4.1 % (0.0-6.0); HEMATOCRIT 31.5 % (38.2-49.6); HEMOGLOBIN 10.1 g/dL (14.0-18.0); LYMPHOCYTES # (AUTO) 1.6 (1.0-3.2); LYMPHOCYTES % 20.4 % (18.0-39.1); MEAN CORPUSCULAR HEMOGLOBIN 26.4 pg (28-32); MEAN CORPUSCULAR HGB CONC 32.1 g/dL (31-35); MEAN CORPUSCULAR VOLUME 82.2 fL (81-99); MONOCYTES # (AUTO) 0.7 (0.2-0.8); MONOCYTES % 8.9 % (4.4-11.3); NEUTROPHILS # (AUTO) 5.3 (2.1-6.9); PLATELET COUNT 339 x10e3/uL (140-360); RED BLOOD COUNT 3.83 x10e6/uL (4.3-5.7); RED CELL DISTRIBUTION WIDTH 17.1 % (11.7-14.4)
[2020-11-06 07:01] LABS: ALANINE AMINOTRANSFERASE 25 IU/L (0-55); ALBUMIN 2.4 g/dL (3.5-5.0); ALBUMIN/GLOBULIN RATIO 0.6 (0.8-2.0); ALKALINE PHOSPHATASE 85 IU/L (40-150); ANION GAP 12.1 mmol/L (8-16); BLOOD UREA NITROGEN < 5 mg/dL (7-26); CALCIUM 7.8 mg/dL (8.4-10.2); CARBON DIOXIDE 22 mmol/L (22-29); CHLORIDE 108 mmol/L (98-107); EST GLOMERULAR FILTRATION RATE > 60 ML/MIN (60-); GLUCOSE 98 mg/dL (74-118); POTASSIUM 3.1 mmol/L (3.5-5.1); SODIUM 139 mmol/L (136-145)
[2020-11-06 07:02] LABS: BUN/CREATININE RATIO 10 (6-25)
[2020-11-06] MEDS: INSULIN REGULAR, HUMAN 100 UNIT/1 ML 3ML VIAL SQ SCH ×4 (07:30→20:41)
[2020-11-06] MEDS ORDERED: POTASSIUM CHLORIDE 20MEQ/15ML UDC NG STA (08:34)
[2020-11-06] MEDS: CHOLESTYRAMINE 4 GM PACKET PO SCH ×2 (10:39→17:32)
[2020-11-06] MEDS: LISINOPRIL 10 MG TAB PEG SCH (10:39)
[2020-11-06] MEDS: ASPIRIN 81 MG CHEW TAB PO SCH (10:39)
[2020-11-06] MEDS: BALSAM PERU/CASTOR OIL 60 GM OINT...G. TP SCH (10:40)
[2020-11-06] MEDS: CLOPIDOGREL BISULFATE 75 MG TAB PEG SCH (10:41)
[2020-11-06] MEDS: METOPROLOL TARTRATE 50 MG TAB PEG SCH (11:45)
[2020-11-06] MEDS ORDERED: VANCOMYCIN IV SCH (12:00)
[2020-11-06] MEDS ORDERED: SODIUM CHLORIDE 0.9% IV SCH (12:00)
[2020-11-06] MEDS ORDERED: KCL 20 MEQ PACKET/ ORAL SOLN NG ONE (17:30)
[2020-11-06] MEDS: MIRTAZAPINE 15 MG TAB PO SCH (21:38)
[2020-11-07] VITALS: BP 152/96
[2020-11-07] MEDS: METOPROLOL TARTRATE 50 MG TAB PEG SCH ×3 (00:25→23:45)
[2020-11-07] MEDS: CEFEPIME 1 GM in SODIUM CHLORIDE 0.9% 50ML 50 ML IV SCH ×3 (00:37→16:24)
[2020-11-07] MEDS: VANCOMYCIN IV SCH ×2 (06:06→20:00)
[2020-11-07] MEDS: SODIUM CHLORIDE 0.9% IV SCH ×2 (06:06→20:00)
[2020-11-07] MEDS: INSULIN REGULAR, HUMAN 100 UNIT/1 ML 3ML VIAL SQ SCH ×4 (07:30→20:40)
[2020-11-07] MEDS: LISINOPRIL 10 MG TAB PEG SCH (09:25)
[2020-11-07] MEDS: ASPIRIN 81 MG CHEW TAB PO SCH (09:25)
[2020-11-07] MEDS: CHOLESTYRAMINE 4 GM PACKET PO SCH ×2 (09:25→16:24)
[2020-11-07] MEDS: BALSAM PERU/CASTOR OIL 60 GM OINT...G. TP SCH (09:25)
[2020-11-07] MEDS: CLOPIDOGREL BISULFATE 75 MG TAB PEG SCH (09:25)
[2020-11-07] MEDS ORDERED: DEXTROSE 5%/LACTATED RINGERS 1,000 ML IV SCH (17:45)
[2020-11-07] MEDS: METOCLOPRAMIDE HCL 10 MG/2ML VIAL IV SCH (18:02)
[2020-11-07] MEDS: MIRTAZAPINE 15 MG TAB PO SCH (21:00)
[2020-11-08] MEDS: METOCLOPRAMIDE HCL 10 MG/2ML VIAL IV SCH ×4 (00:57→18:00)
[2020-11-08] MEDS: INSULIN REGULAR, HUMAN 100 UNIT/1 ML 3ML VIAL SQ SCH ×4 (07:30→21:00)
[2020-11-08] MEDS: BALSAM PERU/CASTOR OIL 60 GM OINT...G. TP SCH (09:00)
[2020-11-08] MEDS: LISINOPRIL 10 MG TAB PEG SCH (09:00)
[2020-11-08] MEDS: CHOLESTYRAMINE 4 GM PACKET PO SCH ×2 (09:00→17:00)
[2020-11-08] MEDS: CLOPIDOGREL BISULFATE 75 MG TAB PEG SCH (09:00)
[2020-11-08] MEDS: ASPIRIN 81 MG CHEW TAB PO SCH (09:00)
[2020-11-08] MEDS: METOPROLOL TARTRATE 50 MG TAB PEG SCH ×2 (11:45→23:45)
[2020-11-08] MEDS ORDERED: SODIUM CHLORIDE 0.9% 1000ML 1,000 ML ONE (12:20)
[2020-11-08 13:52] LABS: BASOPHILS % 0.4 % (0.0-1.0); EOSINOPHILS # (AUTO) 0.4 (0.0-0.4); EOSINOPHILS % 4.5 % (0.0-6.0); HEMATOCRIT 32.2 % (38.2-49.6); HEMOGLOBIN 10.3 g/dL (14.0-18.0); LYMPHOCYTES # (AUTO) 1.8 (1.0-3.2); LYMPHOCYTES % 22.8 % (18.0-39.1); MEAN CORPUSCULAR HEMOGLOBIN 26.1 pg (28-32); MEAN CORPUSCULAR VOLUME 81.7 fL (81-99); MONOCYTES # (AUTO) 0.7 (0.2-0.8); MONOCYTES % 8.6 % (4.4-11.3); NEUTROPHILS # (AUTO) 4.9 (2.1-6.9); NEUTROPHILS % 63.1 % (38.7-80.0); PLATELET COUNT 393 x10e3/uL (140-360); RED BLOOD COUNT 3.94 x10e6/uL (4.3-5.7); RED CELL DISTRIBUTION WIDTH 17.2 % (11.7-14.4)
[2020-11-08 14:01] LABS: INR 1.3; PROTHROMBIN TIME 16.9 seconds (11.9-14.5)
[2020-11-08 14:02] LABS: PARTIAL THROMBOPLASTIN TIME 29.3 seconds (23.8-35.5)
[2020-11-08 14:04] LABS: ANION GAP 14.2 mmol/L (8-16); BLOOD UREA NITROGEN < 5 mg/dL (7-26); CALCIUM 7.6 mg/dL (8.4-10.2); CARBON DIOXIDE 20 mmol/L (22-29); CHLORIDE 107 mmol/L (98-107); CREATININE, SERUM 0.62 mg/dL (0.72-1.25); EST GLOMERULAR FILTRATION RATE 126 ML/MIN (60-); POTASSIUM 3.2 mmol/L (3.5-5.1); SODIUM 138 mmol/L (136-145)
[2020-11-08 14:09] LABS: BUN/CREATININE RATIO 8 (6-25)
[2020-11-08 14:11] LABS: GLUCOSE 580 mg/dL (74-118)
[2020-11-08] MEDS: DEXTROSE 5%/LACTATED RINGERS 1,000 ML IV SCH (15:00)
[2020-11-08] MEDS: Vancomycin IV 1 GM in SODIUM CHLORIDE 0.9% 250ML 250 ML IV SCH (19:00)
[2020-11-08] MEDS: MIRTAZAPINE 15 MG TAB PO SCH (21:00)
[2020-11-09 04:00] VITALS: BP 127/105
[2020-11-09] MEDS: METOCLOPRAMIDE HCL 10 MG/2ML VIAL IV SCH ×5 (06:00→23:51)
[2020-11-09] MEDS: INSULIN REGULAR, HUMAN 100 UNIT/1 ML 3ML VIAL SQ SCH ×4 (07:30→21:18)
[2020-11-09] MEDS: LISINOPRIL 10 MG TAB PEG SCH (09:00)
[2020-11-09] MEDS: ASPIRIN 81 MG CHEW TAB PO SCH (09:00)
[2020-11-09] MEDS: CHOLESTYRAMINE 4 GM PACKET PO SCH ×2 (09:00→17:11)
[2020-11-09] MEDS: CLOPIDOGREL BISULFATE 75 MG TAB PEG SCH (09:00)
[2020-11-09] MEDS: BALSAM PERU/CASTOR OIL 60 GM OINT...G. TP SCH (09:00)
[2020-11-09] MEDS: METOPROLOL TARTRATE 50 MG TAB PEG SCH ×2 (11:45→23:51)
[2020-11-09 16:00] VITALS: BP 127/105
[2020-11-09] MEDS: DEXTROSE 5%/LACTATED RINGERS 1,000 ML IV SCH (17:06)
[2020-11-09] MEDS: Vancomycin IV 1 GM in SODIUM CHLORIDE 0.9% 250ML 250 ML IV SCH (19:23)
[2020-11-09 20:00] VITALS: BP 154/142
[2020-11-09] MEDS: MIRTAZAPINE 15 MG TAB PO SCH (21:19)
[2020-11-10] VITALS (7 sets, daily range): BP systolic 116–150; BP diastolic 65–122
[2020-11-10] MEDS ORDERED: POTASSIUM CHLORIDE 20MEQ/15ML UDC NG ONE (00:30)
[2020-11-10] MEDS: DEXTROSE 5%/LACTATED RINGERS 1,000 ML IV SCH (01:15)
[2020-11-10] MEDS: METOCLOPRAMIDE HCL 10 MG/2ML VIAL IV SCH ×3 (05:22→17:08)
[2020-11-10] MEDS ORDERED: KCL 20 MEQ PACKET/ ORAL SOLN NG ONE (06:55)
[2020-11-10 06:59] LABS: ANION GAP 12.1 mmol/L (8-16); BLOOD UREA NITROGEN < 5 mg/dL (7-26); CALCIUM 7.7 mg/dL (8.4-10.2); CARBON DIOXIDE 23 mmol/L (22-29); CHLORIDE 108 mmol/L (98-107); EST GLOMERULAR FILTRATION RATE 131 ML/MIN (60-); POTASSIUM 3.1 mmol/L (3.5-5.1); SODIUM 140 mmol/L (136-145)
[2020-11-10 07:00] LABS: BUN/CREATININE RATIO 8 (6-25)
[2020-11-10 07:17] LABS: GLUCOSE 533 mg/dL (74-118)
[2020-11-10] MEDS: INSULIN REGULAR, HUMAN 100 UNIT/1 ML 3ML VIAL SQ SCH ×4 (07:30→21:57)
[2020-11-10] MEDS: CHOLESTYRAMINE 4 GM PACKET PO SCH ×2 (07:41→17:08)
[2020-11-10] MEDS ORDERED: POTASSIUM CHLORIDE 20 MEQ TAB CR PO ONE (08:10)
[2020-11-10] MEDS: ASPIRIN 81 MG CHEW TAB PO SCH (09:00)
[2020-11-10] MEDS: CLOPIDOGREL BISULFATE 75 MG TAB PEG SCH (09:00)
[2020-11-10] MEDS: BALSAM PERU/CASTOR OIL 60 GM OINT...G. TP SCH (09:00)
[2020-11-10] MEDS: LISINOPRIL 10 MG TAB PEG SCH (09:00)
[2020-11-10] MEDS: METOPROLOL TARTRATE 50 MG TAB PEG SCH ×2 (14:18→22:35)
[2020-11-10] MEDS: Vancomycin IV 1 GM in SODIUM CHLORIDE 0.9% 250ML 250 ML IV SCH (19:49)
[2020-11-10] MEDS: MIRTAZAPINE 15 MG TAB PO SCH (20:47)
[2020-11-11] VITALS (9 sets, daily range): BP systolic 100–167; BP diastolic 56–78
[2020-11-11] MEDS: METOCLOPRAMIDE HCL 10 MG/2ML VIAL IV SCH ×4 (02:04→17:02)
[2020-11-11] MEDS: DEXTROSE 5%/LACTATED RINGERS 1,000 ML IV SCH (04:37)
[2020-11-11] MEDS ORDERED: BUPIVACAINE HCL 0.5% INJ 30 ML VIAL INJ ONE (06:37)
[2020-11-11] MEDS ORDERED: LIDOCAINE HCL 1% LOCAL INJ 20 ML VIAL ONE (06:38)
[2020-11-11] MEDS ORDERED: BETAMETHASONE DISODIUM PHOS 6 MG/ML VIAL ONE (06:53)
[2020-11-11] MEDS ORDERED: Vancomycin IV 500 MG ONE (07:06)
[2020-11-11] MEDS ORDERED: MUPIROCIN 2% OINT 22 GM TUBE ONE (07:13)
[2020-11-11] MEDS ORDERED: SUGAMMADEX SODIUM 200 MG/2 ML VIAL IV ONE (07:26)
[2020-11-11] MEDS: INSULIN REGULAR, HUMAN 100 UNIT/1 ML 3ML VIAL SQ SCH ×4 (07:30→21:30)
[2020-11-11] MEDS: BALSAM PERU/CASTOR OIL 60 GM OINT...G. TP SCH (09:31)
[2020-11-11] MEDS: CLOPIDOGREL BISULFATE 75 MG TAB PEG SCH (09:31)
[2020-11-11] MEDS: LISINOPRIL 10 MG TAB PEG SCH (09:31)
[2020-11-11] MEDS: CHOLESTYRAMINE 4 GM PACKET PO SCH ×2 (09:31→17:02)
[2020-11-11] MEDS: METOPROLOL TARTRATE 50 MG TAB PEG SCH ×2 (11:34→23:30)
[2020-11-11] MEDS ORDERED: FENTANYL CITRATE/PF 100MCG/2 ML INJ ONE (11:44)
[2020-11-11] MEDS ORDERED: ROCURONIUM BROMIDE 10 MG/ML 5ML VIAL IV ONE (13:34)
[2020-11-11] MEDS ORDERED: ESMOLOL HCL 100MG/10ML 10 MG/ML VIAL ONE (13:34)
[2020-11-11] MEDS ORDERED: ONDANSETRON HCL INJ 2MG/ML 2ML 2 MG/ML VIAL ONE (13:34)
[2020-11-11] MEDS ORDERED: ETOMIDATE 2 MG/ML 10 ML INJ IV ONE (13:34)
[2020-11-11] MEDS ORDERED: DEXAMETHASONE SOD PHOS INJ 4 MG/ML VIAL ONE (13:34)
[2020-11-11] MEDS ORDERED: SEVOFLURANE INHAL SOLN 250 ML PEN BTL ONE (13:34)
[2020-11-11] MEDS ORDERED: POVIDONE IODINE 0.05% 0.05 % ML PO ONE (13:34)
[2020-11-11] MEDS ORDERED: PHENYLEPHRINE HCL 1% 10 MG/ML VIAL ONE (13:34)
[2020-11-11] MEDS ORDERED: PROPOFOL IV EMULSION 10 MG/ML 20 ML VIAL ONE (13:34)
[2020-11-11] MEDS ORDERED: LIDOCAINE HCL 2% LOCAL INJ 5 ML SDV VIAL INJ ONE (13:34)
[2020-11-11] MEDS: Vancomycin IV 1 GM in SODIUM CHLORIDE 0.9% 250ML 250 ML IV SCH (21:45)
[2020-11-11] MEDS: MIRTAZAPINE 15 MG TAB PO SCH (21:45)
[2020-11-12] VITALS (8 sets, daily range): BP systolic 107–153; BP diastolic 56–66
[2020-11-12] MEDS: METOCLOPRAMIDE HCL 10 MG/2ML VIAL IV SCH ×4 (00:30→18:02)
[2020-11-12] MEDS: DEXTROSE 5%/LACTATED RINGERS 1,000 ML IV SCH ×2 (01:15→22:30)
[2020-11-12 05:30] LABS: BASOPHILS % 0.3 % (0.0-1.0); EOSINOPHILS # (AUTO) 0.4 (0.0-0.4); EOSINOPHILS % 3.2 % (0.0-6.0); HEMATOCRIT 32.1 % (38.2-49.6); HEMOGLOBIN 9.7 g/dL (14.0-18.0); LYMPHOCYTES # (AUTO) 2.4 (1.0-3.2); MEAN CORPUSCULAR HEMOGLOBIN 25.3 pg (28-32); MEAN CORPUSCULAR HGB CONC 30.2 g/dL (31-35); MEAN CORPUSCULAR VOLUME 83.6 fL (81-99); MONOCYTES % 8.5 % (4.4-11.3); NEUTROPHILS # (AUTO) 8.1 (2.1-6.9); NEUTROPHILS % 67.7 % (38.7-80.0); PLATELET COUNT 407 x10e3/uL (140-360); RED BLOOD COUNT 3.84 x10e6/uL (4.3-5.7); RED CELL DISTRIBUTION WIDTH 17.8 % (11.7-14.4)
[2020-11-12 06:05] LABS: ANION GAP 9.9 mmol/L (8-16); CALCIUM 7.9 mg/dL (8.4-10.2); CREATININE, SERUM 0.53 mg/dL (0.72-1.25); POTASSIUM 3.9 mmol/L (3.5-5.1)
[2020-11-12] MEDS: INSULIN REGULAR, HUMAN 100 UNIT/1 ML 3ML VIAL SQ SCH ×4 (07:30→21:30)
[2020-11-12] MEDS: ASPIRIN 81 MG CHEW TAB PO SCH ×2 (09:00→11:31)
[2020-11-12] MEDS: CHOLESTYRAMINE 4 GM PACKET PO SCH ×2 (09:00→18:02)
[2020-11-12] MEDS: BALSAM PERU/CASTOR OIL 60 GM OINT...G. TP SCH (10:45)
[2020-11-12] MEDS: LISINOPRIL 10 MG TAB PEG SCH (11:30)
[2020-11-12] MEDS: CLOPIDOGREL BISULFATE 75 MG TAB PEG SCH (11:30)
[2020-11-12] MEDS: METOPROLOL TARTRATE 50 MG TAB PEG SCH (11:30)
[2020-11-12] MEDS: MIRTAZAPINE 15 MG TAB PO SCH (21:20)
[2020-11-12] MEDS: Vancomycin IV 1 GM in SODIUM CHLORIDE 0.9% 250ML 250 ML IV SCH (21:20)
[2020-11-13] VITALS (7 sets, daily range): BP systolic 111–144; BP diastolic 50–72
[2020-11-13] MEDS: METOPROLOL TARTRATE 50 MG TAB PEG SCH ×2 (00:20→13:11)
[2020-11-13] MEDS: METOCLOPRAMIDE HCL 10 MG/2ML VIAL IV SCH ×4 (00:20→18:52)
[2020-11-13] MEDS: INSULIN REGULAR, HUMAN 100 UNIT/1 ML 3ML VIAL SQ SCH ×4 (08:28→20:41)
[2020-11-13] MEDS: LISINOPRIL 10 MG TAB PEG SCH (11:10)
[2020-11-13] MEDS: CLOPIDOGREL BISULFATE 75 MG TAB PEG SCH (11:10)
[2020-11-13] MEDS: ASPIRIN 81 MG CHEW TAB PO SCH (11:10)
[2020-11-13] MEDS: CHOLESTYRAMINE 4 GM PACKET PO SCH ×2 (17:00→17:30)
[2020-11-13] MEDS: BALSAM PERU/CASTOR OIL 60 GM OINT...G. TP SCH (18:00)
[2020-11-13] MEDS: ATORVASTATIN 20 MG TAB PO SCH (21:14)
[2020-11-13] MEDS: MIRTAZAPINE 15 MG TAB PO SCH (21:14)
[2020-11-13] MEDS: DEXTROSE 5%/LACTATED RINGERS 1,000 ML IV SCH (21:14)
[2020-11-13] MEDS: Vancomycin IV 1 GM in SODIUM CHLORIDE 0.9% 250ML 250 ML IV SCH (21:14)
[2020-11-14] VITALS (9 sets, daily range): BP systolic 101–147; BP diastolic 53–77
[2020-11-14] MEDS: METOPROLOL TARTRATE 50 MG TAB PEG SCH ×3 (00:15→12:20)
[2020-11-14] MEDS: METOCLOPRAMIDE HCL 10 MG/2ML VIAL IV SCH ×4 (00:15→17:31)
[2020-11-14] MEDS: INSULIN REGULAR, HUMAN 100 UNIT/1 ML 3ML VIAL SQ SCH ×4 (07:30→21:30)
[2020-11-14] MEDS: CHOLESTYRAMINE 4 GM PACKET PO SCH ×2 (08:52→17:30)
[2020-11-14] MEDS: LISINOPRIL 10 MG TAB PEG SCH (08:52)
[2020-11-14] MEDS: ASPIRIN 81 MG CHEW TAB PO SCH (08:52)
[2020-11-14] MEDS: BALSAM PERU/CASTOR OIL 60 GM OINT...G. TP SCH (08:52)
[2020-11-14] MEDS: CLOPIDOGREL BISULFATE 75 MG TAB PEG SCH (08:52)
[2020-11-14] MEDS: DEXTROSE 5%/LACTATED RINGERS 1,000 ML IV SCH (18:52)
[2020-11-14] MEDS: Vancomycin IV 1 GM in SODIUM CHLORIDE 0.9% 250ML 250 ML IV SCH (21:30)
[2020-11-14] MEDS: MIRTAZAPINE 15 MG TAB PO SCH (21:49)
[2020-11-14] MEDS: ATORVASTATIN 20 MG TAB PO SCH (21:49)
[2020-11-15] VITALS (7 sets, daily range): BP systolic 128–153; BP diastolic 59–99
[2020-11-15] MEDS: METOCLOPRAMIDE HCL 10 MG/2ML VIAL IV SCH ×4 (00:30→17:19)
[2020-11-15] MEDS: METOPROLOL TARTRATE 50 MG TAB PEG SCH ×2 (00:30→12:00)
[2020-11-15] MEDS: INSULIN REGULAR, HUMAN 100 UNIT/1 ML 3ML VIAL SQ SCH ×3 (07:30→16:57)
[2020-11-15] MEDS: LISINOPRIL 10 MG TAB PEG SCH (09:50)
[2020-11-15] MEDS: CHOLESTYRAMINE 4 GM PACKET PO SCH ×2 (09:50→17:19)
[2020-11-15] MEDS: BALSAM PERU/CASTOR OIL 60 GM OINT...G. TP SCH (09:50)
[2020-11-15] MEDS: CLOPIDOGREL BISULFATE 75 MG TAB PEG SCH (09:50)
[2020-11-15] MEDS: ASPIRIN 81 MG CHEW TAB PO SCH (09:50)
[2020-11-15] MEDS: ACETAMINOPHEN 650 MG SUPP PR PRN (09:50)
[2020-11-15] MEDS ORDERED: MUPIROCIN 2% OINT 22 GM TUBE TOP SCH (11:00)
[2020-11-15] MEDS: Vancomycin IV 1 GM in SODIUM CHLORIDE 0.9% 250ML 250 ML IV SCH (17:19)
== END 2020-11-15 19:44 | disposition home or self-care (01) | DRG 853 ==
LOC: ER 19:58 → ERHOLD 19:59 → MED/SURG2 10-29 04:07
PROVIDERS: ADMIT Internal Medicine; ATTEND Internal Medicine
PROC: B4101ZZ Fluoroscopy of Abdominal Aorta using Low Osmolar Contrast (ICD-10-PCS; principal; 2020-11-05)
PROC: B41G1ZZ Fluoroscopy of Left Lower Extremity Arteries using Low Osmolar Contrast (ICD-10-PCS; 2020-11-05)
PROC: 0Y6N0Z9 Detachment at Left Foot, Partial 1st Ray, Open Approach (ICD-10-PCS; 2020-11-11)
PROC: 0Y6N0ZB Detachment at Left Foot, Partial 2nd Ray, Open Approach (ICD-10-PCS; 2020-11-11)
PROC: 0Y6N0ZC Detachment at Left Foot, Partial 3rd Ray, Open Approach (ICD-10-PCS; 2020-11-11)
PROC: 0Y6N0ZD Detachment at Left Foot, Partial 4th Ray, Open Approach (ICD-10-PCS; 2020-11-11)
PROC: 0Y6N0ZF Detachment at Left Foot, Partial 5th Ray, Open Approach (ICD-10-PCS; 2020-11-11)
DX: A41.9 Sepsis, unspecified organism (principal); G93.41 Metabolic encephalopathy; J69.0 Pneumonitis due to inhalation of food and vomit; L03.116 Cellulitis of left lower limb; E11.52 Type 2 diabetes mellitus with diabetic peripheral angiopathy with gangrene; I96 Gangrene, not elsewhere classified; L02.612 Cutaneous abscess of left foot; E87.1 Hypo-osmolality and hyponatremia; R65.20 Severe sepsis without septic shock; E03.9 Hypothyroidism, unspecified; E78.5 Hyperlipidemia, unspecified; F03.90 Unspecified dementia, unspecified severity, without behavioral disturbance, psychotic disturbance, mood disturbance, and anxiety; Z93.1 Gastrostomy status; Z74.01 Bed confinement status; E11.42 Type 2 diabetes mellitus with diabetic polyneuropathy; I69.319 Unspecified symptoms and signs involving cognitive functions following cerebral infarction; F01.50 Vascular dementia, unspecified severity, without behavioral disturbance, psychotic disturbance, mood disturbance, and anxiety; R13.10 Dysphagia, unspecified; Z86.711 Personal history of pulmonary embolism; D64.9 Anemia, unspecified; E88.09 Other disorders of plasma-protein metabolism, not elsewhere classified; Z89.412 Acquired absence of left great toe; E87.6 Hypokalemia; R19.7 Diarrhea, unspecified; Z66 Do not resuscitate; L89.152 Pressure ulcer of sacral region, stage 2; L89.611 Pressure ulcer of right heel, stage 1; Z20.822 Contact with and (suspected) exposure to COVID-19
CPT/HCPCS: 36247; 36415; 36569; 71045; 74018; 75625; 75716; 80048; 80053; 80202; 81001; 82550; 82553; 82948; 83605; 83690; 84484; 85025; 85610; 85730; 87040; 87071; 87075; 87086; 87205; 88304; 88307; 88311; 93005; 96361; 96365; 99152; 99153; 99251; 99284; C1766; C1769; C1887; C1894; J0360; J0692; J0720; J1100; J1644; J1650; J1817; J2001; J2250; J2370; J2405; J2765; J3010; J3370; J3480; J7030; J7050; J7121; J7799; Q9967; U0002

== ENCOUNTER 2020-11-18 22:59 | Inpatient (IN) | payer MEDICARE ==
[~2020-11-18] VITALS: Ht 167.6 cm; Wt 68.0 kg
[~2020-11-18 22:59] MED LIST changes: +OSMOLITE
[2020-11-18] MEDS ORDERED: CEFEPIME 1 GM in SODIUM CHLORIDE 0.9% 50ML 50 ML IV ONE (23:15)
[2020-11-18] MEDS ORDERED: SODIUM CHLORIDE 0.9% 1000ML 1,000 ML IV ONE (23:15)
[2020-11-18] MEDS ORDERED: ACETAMINOPHEN 325 MG TAB PO ONE (23:30)
[2020-11-18 23:43] LABS: BASOPHILS % 0.2 % (0.0-1.0); EOSINOPHILS # (AUTO) 0.3 (0.0-0.4); EOSINOPHILS % 2.4 % (0.0-6.0); HEMATOCRIT 23.3 % (38.2-49.6); HEMOGLOBIN 7.1 g/dL (14.0-18.0); LYMPHOCYTES # (AUTO) 2.5 (1.0-3.2); LYMPHOCYTES % 19.3 % (18.0-39.1); MEAN CORPUSCULAR HEMOGLOBIN 26.6 pg (28-32); MEAN CORPUSCULAR HGB CONC 30.5 g/dL (31-35); MEAN CORPUSCULAR VOLUME 87.3 fL (81-99); MONOCYTES # (AUTO) 1.4 (0.2-0.8); MONOCYTES % 10.6 % (4.4-11.3); NEUTROPHILS # (AUTO) 8.8 (2.1-6.9); PLATELET COUNT 303 x10e3/uL (140-360); RED BLOOD COUNT 2.67 x10e6/uL (4.3-5.7); RED CELL DISTRIBUTION WIDTH 18.5 % (11.7-14.4)
[2020-11-18 23:48] LABS: CLARITY,URINE CLOUDY (CLEAR); COLOR,URINE YELLOW (YELLOW); KETONES,URINE NEGATIVE (NEGATIVE); LEUKOCYTE ESTERASE ,URINE NEGATIVE (NEGATIVE); NITRITE,URINE NEGATIVE (NEGATIVE); PROTEIN,URINE DIPSTICK 1+ (NEGATIVE); URINE UROBILINOGEN 0.2 mg/dL (0.2 - 1)
[2020-11-18 23:49] LABS: EPITHELIAL CELLS,URINE FEW /LPF; RBC,URINE 0-5 /HPF (0-5); WBC,URINE (MAN) 0-5 /HPF (0-5)
[2020-11-18 23:54] LABS: BACTERIA,URINE MANY /HPF; MUCUS,URINE MANY (RARE)
[2020-11-18] MEDS ORDERED: SODIUM CHLORIDE 0.9% 1000ML 1,000 ML ONE (23:56)
[2020-11-18] MEDS ORDERED: CEFEPIME HCL 1 GM VIAL ONE (23:56)
[2020-11-19] VITALS (9 sets, daily range): BP systolic 95–147; BP diastolic 50–63
[2020-11-19 00:03] LABS: ALBUMIN 2.2 g/dL (3.5-5.0); ALBUMIN/GLOBULIN RATIO 0.6 (0.8-2.0); ANION GAP 12.1 mmol/L (8-16); CALCIUM 7.5 mg/dL (8.4-10.2); CREATININE, SERUM 0.6 mg/dL (0.72-1.25); POTASSIUM 4.1 mmol/L (3.5-5.1)
[2020-11-19 00:12] LABS: CREATINE KINASE MB 0.7 ng/mL (0-5.0)
[2020-11-19] MEDS ORDERED: ACETAMINOPHEN 650 MG SUPP PR PRN (01:30)
[2020-11-19] MEDS ORDERED: DEXTROSE 50% SYRINGE 50 ML IV PRN (01:30)
[2020-11-19] MEDS ORDERED: ONDANSETRON HCL INJ 2MG/ML 2ML 2 MG/ML VIAL IV PRN ×2 (01:30→09:00)
[2020-11-19] MEDS: SODIUM CHLORIDE 0.9% 1000ML 1,000 ML IV SCH (03:30)
[2020-11-19] MEDS: CEFEPIME 1 GM in SODIUM CHLORIDE 0.9% 50ML 50 ML IV SCH ×2 (05:37→16:01)
[2020-11-19] MEDS ORDERED: INSULIN REGULAR, HUMAN 100 UNIT/1 ML SQ SCH (07:30)
[2020-11-19] MEDS ORDERED: HYDRALAZINE HCL 20 MG/ML VIAL IV PRN (09:00)
[2020-11-19] MEDS: CLOPIDOGREL BISULFATE 75 MG TAB PEG SCH (09:45)
[2020-11-19] MEDS: QUETIAPINE FUMARATE 25 MG TAB PEG SCH ×2 (09:45→18:05)
[2020-11-19] MEDS: METOPROLOL TARTRATE 50 MG TAB PEG SCH (09:45)
[2020-11-19] MEDS ORDERED: VANCOMYCIN 750MG/NS 150ML IVPB 150 ML IV ONE (10:00)
[2020-11-19 10:10] LABS: CREATINE KINASE MB 1.1 ng/mL (0-5.0)
[2020-11-19] MEDS: ACETAMINOPHEN 325 MG TAB PEG PRN (10:41)
[2020-11-19] MEDS: INSULIN REGULAR, HUMAN 100 UNIT/1 ML SQ SCH ×3 (13:10→23:54)
[2020-11-19 15:49] LABS: CREATINE KINASE MB 0.9 ng/mL (0-5.0)
[2020-11-19] MEDS: FAMOTIDINE 20 MG TAB PEG SCH (18:05)
[2020-11-19] MEDS: MIRTAZAPINE 15 MG TAB PEG SCH (20:51)
[2020-11-19] MEDS ORDERED: Vancomycin IV 1 GM VIAL ONE (21:48)
[2020-11-19] MEDS ORDERED: SODIUM CHLORIDE 0.9% 250ML 250 ML ONE (21:49)
[2020-11-19] MEDS ORDERED: VANCOMYCIN 1GM/NS 250 ML 250 ML IV SCH (22:00)
[2020-11-20] VITALS (7 sets, daily range): BP systolic 94–128; BP diastolic 52–67
[2020-11-20] MEDS: SODIUM CHLORIDE 0.9% 1000ML 1,000 ML IV SCH ×2 (00:25→17:30)
[2020-11-20 05:00] LABS: BASOPHILS % 0.3 % (0.0-1.0); EOSINOPHILS # (AUTO) 0.5 (0.0-0.4); EOSINOPHILS % 3.5 % (0.0-6.0); LYMPHOCYTES # (AUTO) 2.4 (1.0-3.2); LYMPHOCYTES % 15.4 % (18.0-39.1); MEAN CORPUSCULAR HEMOGLOBIN 26.6 pg (28-32); MEAN CORPUSCULAR HGB CONC 31.8 g/dL (31-35); MEAN CORPUSCULAR VOLUME 83.7 fL (81-99); MONOCYTES # (AUTO) 1.3 (0.2-0.8); MONOCYTES % 8.3 % (4.4-11.3); NEUTROPHILS # (AUTO) 11.2 (2.1-6.9); NEUTROPHILS % 71.3 % (38.7-80.0); PLATELET COUNT 303 x10e3/uL (140-360); RED BLOOD COUNT 2.63 x10e6/uL (4.3-5.7); RED CELL DISTRIBUTION WIDTH 17.6 % (11.7-14.4)
[2020-11-20 05:32] LABS: ALBUMIN 1.8 g/dL (3.5-5.0); ALBUMIN/GLOBULIN RATIO 0.6 (0.8-2.0); ANION GAP 7.8 mmol/L (8-16); CALCIUM 7.1 mg/dL (8.4-10.2); CREATININE, SERUM 0.48 mg/dL (0.72-1.25)
[2020-11-20 05:42] LABS: POTASSIUM 2.8 mmol/L (3.5-5.1)
[2020-11-20] MEDS: INSULIN REGULAR, HUMAN 100 UNIT/1 ML SQ SCH ×3 (06:16→16:53)
[2020-11-20] MEDS ORDERED: POTASSIUM CHLORIDE 10MEQ/100ML 300 ML IV ONE (06:30)
[2020-11-20 08:22] LABS: BAND NEUTROPHILS % (MANUAL) 2 %; EOSINOPHILS % (MANUAL) 3 % (0-7); LYMPHOCYTES % (MANUAL) 14 % (19-48); MONOCYTES % (MANUAL) 7 % (3.4-9.0); NEUTROPHILS % (MANUAL) 74 % (40-74)
[2020-11-20] MEDS: POTASSIUM CHLORIDE 10MEQ/100ML 100 ML IV SCH ×4 (08:59→16:58)
[2020-11-20] MEDS: METOPROLOL TARTRATE 50 MG TAB PEG SCH (09:00)
[2020-11-20] MEDS: FAMOTIDINE 20 MG TAB PEG SCH ×2 (09:01→16:52)
[2020-11-20] MEDS: CLOPIDOGREL BISULFATE 75 MG TAB PEG SCH (09:02)
[2020-11-20] MEDS: QUETIAPINE FUMARATE 25 MG TAB PEG SCH ×2 (09:02→16:52)
[2020-11-20] MEDS: CEFEPIME 1 GM in SODIUM CHLORIDE 0.9% 50ML 50 ML IV SCH (09:52)
[2020-11-20] MEDS: Vancomycin IV 1 GM in SODIUM CHLORIDE 0.9% 250ML 250 ML IV SCH ×2 (10:30→21:42)
[2020-11-20] MEDS: ACETAMINOPHEN 325 MG TAB PEG PRN (13:50)
[2020-11-20] MEDS ORDERED: POTASSIUM CHLORIDE 20 MEQ TAB CR PO STA ×2 (15:30→21:43)
[2020-11-20] MEDS ORDERED: SODIUM CHLORIDE 0.9% 250ML 250 ML IV ONE (16:45)
[2020-11-20 18:49] LABS: % IRON SATURATION 5 % (15-50); IRON 12 ug/dL (65-175); TOTAL IRON BINDING CAPACITY 224 ug/dL (261-478); TRANSFERRIN 160 mg/dL (174-364)
[2020-11-20] MEDS: MIRTAZAPINE 15 MG TAB PEG SCH (21:44)
[2020-11-21] VITALS (7 sets, daily range): BP systolic 98–144; BP diastolic 55–89
[2020-11-21] MEDS: INSULIN REGULAR, HUMAN 100 UNIT/1 ML SQ SCH ×4 (00:51→18:00)
[2020-11-21] MEDS: ACETAMINOPHEN 325 MG TAB PEG PRN (03:04)
[2020-11-21] MEDS: SODIUM CHLORIDE 0.9% 1000ML 1,000 ML IV SCH (03:19)
[2020-11-21 06:45] LABS: BASOPHILS % 0.2 % (0.0-1.0); EOSINOPHILS # (AUTO) 0.4 (0.0-0.4); EOSINOPHILS % 3.7 % (0.0-6.0); HEMATOCRIT 23.2 % (38.2-49.6); HEMOGLOBIN 7.2 g/dL (14.0-18.0); LYMPHOCYTES # (AUTO) 1.8 (1.0-3.2); LYMPHOCYTES % 15.7 % (18.0-39.1); MEAN CORPUSCULAR HEMOGLOBIN 26.1 pg (28-32); MEAN CORPUSCULAR VOLUME 84.1 fL (81-99); MONOCYTES # (AUTO) 0.9 (0.2-0.8); MONOCYTES % 7.8 % (4.4-11.3); NEUTROPHILS # (AUTO) 8.1 (2.1-6.9); NEUTROPHILS % 71.8 % (38.7-80.0); PLATELET COUNT 342 x10e3/uL (140-360); RED BLOOD COUNT 2.76 x10e6/uL (4.3-5.7); RED CELL DISTRIBUTION WIDTH 17.7 % (11.7-14.4)
[2020-11-21 07:01] LABS: ANION GAP 7.6 mmol/L (8-16); CALCIUM 7.3 mg/dL (8.4-10.2); CREATININE, SERUM 0.48 mg/dL (0.72-1.25); POTASSIUM 3.6 mmol/L (3.5-5.1)
[2020-11-21] MEDS: QUETIAPINE FUMARATE 25 MG TAB PEG SCH ×2 (10:22→18:03)
[2020-11-21] MEDS: CLOPIDOGREL BISULFATE 75 MG TAB PEG SCH (10:22)
[2020-11-21] MEDS: Vancomycin IV 1 GM in SODIUM CHLORIDE 0.9% 250ML 250 ML IV SCH ×2 (10:22→21:25)
[2020-11-21] MEDS: FAMOTIDINE 20 MG TAB PEG SCH ×2 (10:22→18:02)
[2020-11-21] MEDS: METOPROLOL TARTRATE 50 MG TAB PEG SCH (10:23)
[2020-11-21] MEDS: CEFEPIME 1 GM in SODIUM CHLORIDE 0.9% 50ML 50 ML IV SCH (10:23)
[2020-11-21] MEDS: MIRTAZAPINE 15 MG TAB PEG SCH (21:25)
[2020-11-22] VITALS (8 sets, daily range): BP systolic 123–153; BP diastolic 51–73
[2020-11-22] MEDS: INSULIN REGULAR, HUMAN 100 UNIT/1 ML SQ SCH ×4 (00:31→18:20)
[2020-11-22] MEDS: ACETAMINOPHEN 325 MG TAB PEG PRN (00:32)
[2020-11-22] MEDS: CEFEPIME 1 GM in SODIUM CHLORIDE 0.9% 50ML 50 ML IV SCH (09:26)
[2020-11-22] MEDS: FAMOTIDINE 20 MG TAB PEG SCH ×2 (09:26→17:34)
[2020-11-22] MEDS: CLOPIDOGREL BISULFATE 75 MG TAB PEG SCH (09:27)
[2020-11-22] MEDS: METOPROLOL TARTRATE 50 MG TAB PEG SCH ×2 (09:27→20:52)
[2020-11-22] MEDS: QUETIAPINE FUMARATE 25 MG TAB PEG SCH ×2 (09:27→17:34)
[2020-11-22] MEDS: SODIUM CHLORIDE 0.9% 1000ML 1,000 ML IV SCH (09:30)
[2020-11-22] MEDS: Vancomycin IV 1 GM in SODIUM CHLORIDE 0.9% 250ML 250 ML IV SCH ×2 (10:40→20:55)
[2020-11-22] MEDS: MIRTAZAPINE 15 MG TAB PEG SCH (20:53)
[2020-11-22] MEDS: ATORVASTATIN 20 MG TAB PO SCH (20:53)
[2020-11-23] VITALS (8 sets, daily range): BP systolic 108–147; BP diastolic 47–103
[2020-11-23] MEDS: ACETAMINOPHEN 325 MG TAB PEG PRN ×2 (01:15→21:07)
[2020-11-23] MEDS: SODIUM CHLORIDE 0.9% 1000ML 1,000 ML IV SCH ×2 (05:30→05:54)
[2020-11-23] MEDS: INSULIN REGULAR, HUMAN 100 UNIT/1 ML SQ SCH ×4 (07:31→18:00)
[2020-11-23] MEDS: Vancomycin IV 1 GM in SODIUM CHLORIDE 0.9% 250ML 250 ML IV SCH (07:40)
[2020-11-23] MEDS: FAMOTIDINE 20 MG TAB PEG SCH ×2 (09:13→16:40)
[2020-11-23] MEDS: CEFEPIME 1 GM in SODIUM CHLORIDE 0.9% 50ML 50 ML IV SCH (09:13)
[2020-11-23] MEDS: CLOPIDOGREL BISULFATE 75 MG TAB PEG SCH (09:14)
[2020-11-23] MEDS: METOPROLOL TARTRATE 50 MG TAB PEG SCH ×2 (09:14→23:06)
[2020-11-23] MEDS: QUETIAPINE FUMARATE 25 MG TAB PEG SCH ×2 (09:14→16:40)
[2020-11-23] MEDS: IRON SUCROSE 100 MG in SODIUM CHLORIDE 0.9% 100 ML 100 ML IV SCH (10:46)
[2020-11-23] MEDS ORDERED: VANCOMYCIN 250MG/5ML ORAL SOLN NG SCH (18:00)
[2020-11-23 19:41] LABS: BASOPHILS % 0.3 % (0.0-1.0); EOSINOPHILS # (AUTO) 0.5 (0.0-0.4); EOSINOPHILS % 3.6 % (0.0-6.0); HEMATOCRIT 21.3 % (38.2-49.6); LYMPHOCYTES # (AUTO) 2.3 (1.0-3.2); LYMPHOCYTES % 17.1 % (18.0-39.1); MEAN CORPUSCULAR HEMOGLOBIN 26.2 pg (28-32); MEAN CORPUSCULAR VOLUME 84.5 fL (81-99); MONOCYTES # (AUTO) 1.1 (0.2-0.8); MONOCYTES % 8.3 % (4.4-11.3); NEUTROPHILS # (AUTO) 9.5 (2.1-6.9); NEUTROPHILS % 69.8 % (38.7-80.0); PLATELET COUNT 374 x10e3/uL (140-360); RED BLOOD COUNT 2.52 x10e6/uL (4.3-5.7); RED CELL DISTRIBUTION WIDTH 17.8 % (11.7-14.4)
[2020-11-23 19:53] LABS: ANION GAP 12.2 mmol/L (8-16); BLOOD UREA NITROGEN < 5 mg/dL (7-26); CARBON DIOXIDE 21 mmol/L (22-29); CHLORIDE 109 mmol/L (98-107); CREATININE, SERUM 0.47 mg/dL (0.72-1.25); EST GLOMERULAR FILTRATION RATE 174 ML/MIN (60-); GLUCOSE 110 mg/dL (74-118); POTASSIUM 3.2 mmol/L (3.5-5.1); SODIUM 139 mmol/L (136-145)
[2020-11-23 20:03] LABS: HEMOGLOBIN 6.6 g/dL (14.0-18.0)
[2020-11-23 20:05] LABS: BUN/CREATININE RATIO 11 (6-25)
[2020-11-23] MEDS ORDERED: SODIUM CHLORIDE 0.9% 250ML 250 ML IV ONE (20:45)
[2020-11-23 21:24] LABS: EOSINOPHILS % (MANUAL) 4 % (0-7); HYPOCHROMASIA MODERATE; LYMPHOCYTES % (MANUAL) 11 % (19-48); MONOCYTES % (MANUAL) 9 % (3.4-9.0); NEUTROPHILS % (MANUAL) 76 % (40-74); NUCLEATED RED BLOOD CELLS 1; PLATELET ESTIMATE ADEQUATE; PLATELET MORPHOLOGY COMMENT NORMAL; RBC MORPHOLOGY COMMENT NORMAL
[2020-11-23] MEDS ORDERED: Vancomycin IV 1 GM in SODIUM CHLORIDE 0.9% 250ML 250 ML IV SCH (21:30)
[2020-11-23] MEDS ORDERED: SODIUM CHLORIDE 0.9% 250ML 250 ML ONE (21:44)
[2020-11-23] MEDS: MIRTAZAPINE 15 MG TAB PEG SCH (23:06)
[2020-11-23] MEDS: ATORVASTATIN 20 MG TAB PO SCH (23:06)
[2020-11-24] VITALS (8 sets, daily range): BP systolic 105–155; BP diastolic 52–72
[2020-11-24] MEDS: VANCOMYCIN 250MG/5ML ORAL SOLN PO SCH ×4 (01:08→18:15)
[2020-11-24] MEDS: SODIUM CHLORIDE 0.9% 1000ML 1,000 ML IV SCH ×2 (01:42→22:15)
[2020-11-24] MEDS: CYANOCOBALAMIN INJ 1,000 MCG/ML VIAL IM ONE ×2 (02:07→02:18)
[2020-11-24] MEDS: CYANOCOBALAMIN INJ 1,000 MCG/ML VIAL IM SCH ×2 (02:19→22:15)
[2020-11-24 08:08] LABS: BASOPHILS % 0.3 % (0.0-1.0); EOSINOPHILS # (AUTO) 0.5 (0.0-0.4); EOSINOPHILS % 4.8 % (0.0-6.0); HEMATOCRIT 26.2 % (38.2-49.6); HEMOGLOBIN 8.2 g/dL (14.0-18.0); LYMPHOCYTES # (AUTO) 1.6 (1.0-3.2); LYMPHOCYTES % 15.2 % (18.0-39.1); MEAN CORPUSCULAR HEMOGLOBIN 27.2 pg (28-32); MEAN CORPUSCULAR HGB CONC 31.3 g/dL (31-35); MEAN CORPUSCULAR VOLUME 86.8 fL (81-99); MONOCYTES # (AUTO) 0.9 (0.2-0.8); MONOCYTES % 8.5 % (4.4-11.3); NEUTROPHILS # (AUTO) 7.2 (2.1-6.9); NEUTROPHILS % 69.9 % (38.7-80.0); PLATELET COUNT 343 x10e3/uL (140-360); RED BLOOD COUNT 3.02 x10e6/uL (4.3-5.7); RED CELL DISTRIBUTION WIDTH 17.3 % (11.7-14.4)
[2020-11-24] MEDS: INSULIN REGULAR, HUMAN 100 UNIT/1 ML SQ SCH ×4 (08:27→17:27)
[2020-11-24] MEDS: FAMOTIDINE 20 MG TAB PEG SCH ×2 (09:29→18:15)
[2020-11-24] MEDS: METOPROLOL TARTRATE 50 MG TAB PEG SCH ×2 (09:30→22:15)
[2020-11-24] MEDS: MUPIROCIN 2% OINT 22 GM TUBE TOP SCH (09:30)
[2020-11-24] MEDS: QUETIAPINE FUMARATE 25 MG TAB PEG SCH ×2 (09:30→18:15)
[2020-11-24] MEDS: CLOPIDOGREL BISULFATE 75 MG TAB PEG SCH (09:30)
[2020-11-24] MEDS: IRON SUCROSE 100 MG in SODIUM CHLORIDE 0.9% 100 ML 100 ML IV SCH (10:27)
[2020-11-24] MEDS: ACETAMINOPHEN 325 MG TAB PEG PRN (19:32)
[2020-11-24] MEDS: ATORVASTATIN 20 MG TAB PO SCH (22:15)
[2020-11-24] MEDS: MIRTAZAPINE 15 MG TAB PEG SCH (22:15)
[2020-11-25] VITALS (8 sets, daily range): BP systolic 133–175; BP diastolic 58–91
[2020-11-25] MEDS: VANCOMYCIN 250MG/5ML ORAL SOLN PO SCH ×4 (06:00→17:24)
[2020-11-25] MEDS: INSULIN REGULAR, HUMAN 100 UNIT/1 ML SQ SCH ×4 (06:00→16:02)
[2020-11-25] MEDS: FAMOTIDINE 20 MG TAB PEG SCH ×2 (10:03→17:24)
[2020-11-25] MEDS: MUPIROCIN 2% OINT 22 GM TUBE TOP SCH (10:04)
[2020-11-25] MEDS: IRON SUCROSE 100 MG in SODIUM CHLORIDE 0.9% 100 ML 100 ML IV SCH (10:04)
[2020-11-25] MEDS: METOPROLOL TARTRATE 50 MG TAB PEG SCH ×2 (10:04→21:30)
[2020-11-25] MEDS: QUETIAPINE FUMARATE 25 MG TAB PEG SCH ×2 (10:04→17:24)
[2020-11-25] MEDS: CLOPIDOGREL BISULFATE 75 MG TAB PEG SCH (10:04)
[2020-11-25] MEDS: ACETAMINOPHEN 325 MG TAB PEG PRN (17:25)
[2020-11-25] MEDS: SODIUM CHLORIDE 0.9% 1000ML 1,000 ML IV SCH (17:54)
[2020-11-25] MEDS: MIRTAZAPINE 15 MG TAB PEG SCH (21:30)
[2020-11-25] MEDS: CYANOCOBALAMIN INJ 1,000 MCG/ML VIAL IM SCH (21:30)
[2020-11-25] MEDS: ATORVASTATIN 20 MG TAB PO SCH (21:30)
[2020-11-26 04:00] VITALS: BP 127/58
[2020-11-26] MEDS: VANCOMYCIN 250MG/5ML ORAL SOLN PO SCH ×4 (06:30→17:34)
[2020-11-26] MEDS: INSULIN REGULAR, HUMAN 100 UNIT/1 ML SQ SCH ×3 (06:30→13:45)
[2020-11-26] MEDS: FAMOTIDINE 20 MG TAB PEG SCH ×2 (06:30→17:34)
[2020-11-26 07:44] VITALS: BP_SYST 108; BP_SYST 136; BP_DIAS 40; BP_DIAS 86
[2020-11-26 08:00] VITALS: BP 136/86
[2020-11-26] MEDS: MUPIROCIN 2% OINT 22 GM TUBE TOP SCH (09:00)
[2020-11-26] MEDS: CLOPIDOGREL BISULFATE 75 MG TAB PEG SCH (09:00)
[2020-11-26] MEDS: METOPROLOL TARTRATE 50 MG TAB PEG SCH (09:00)
[2020-11-26] MEDS: QUETIAPINE FUMARATE 25 MG TAB PEG SCH ×2 (09:00→17:34)
[2020-11-26] MEDS: IRON SUCROSE 100 MG in SODIUM CHLORIDE 0.9% 100 ML 100 ML IV SCH (09:00)
[2020-11-26 11:33] VITALS: BP 116/56
[2020-11-26] MEDS: SODIUM CHLORIDE 0.9% 1000ML 1,000 ML IV SCH (13:46)
[2020-11-26 15:45] VITALS: BP 148/80
[2020-11-26 20:49] VITALS: BP 139/74
== END 2020-11-26 22:00 | disposition home or self-care (01) | DRG 871 ==
LOC: ER 23:18 → ERHOLD 11-19 01:28 → MED/SURG3 11-19 02:32
PROVIDERS: ADMIT Internal Medicine; ATTEND Internal Medicine
PROC: 30233N1 Transfusion of Nonautologous Red Blood Cells into Peripheral Vein, Percutaneous Approach (ICD-10-PCS; principal; 2020-11-23)
DX: A41.9 Sepsis, unspecified organism (principal); I21.A1 Myocardial infarction type 2; E11.52 Type 2 diabetes mellitus with diabetic peripheral angiopathy with gangrene; A04.72 Enterocolitis due to Clostridium difficile, not specified as recurrent; M86.8X7 Other osteomyelitis, ankle and foot; L97.424 Non-pressure chronic ulcer of left heel and midfoot with necrosis of bone; I10 Essential (primary) hypertension; E03.9 Hypothyroidism, unspecified; E78.5 Hyperlipidemia, unspecified; F03.90 Unspecified dementia, unspecified severity, without behavioral disturbance, psychotic disturbance, mood disturbance, and anxiety; Z74.01 Bed confinement status; E11.621 Type 2 diabetes mellitus with foot ulcer; R13.10 Dysphagia, unspecified; E11.69 Type 2 diabetes mellitus with other specified complication; Z93.1 Gastrostomy status; L89.152 Pressure ulcer of sacral region, stage 2; Z89.432 Acquired absence of left foot; E87.6 Hypokalemia
CPT/HCPCS: 36415; 71045; 80048; 80053; 80202; 81001; 82270; 82550; 82553; 82607; 82728; 82746; 82948; 83540; 83605; 83630; 83993; 84466; 84484; 85025; 86850; 86900; 86920; 87040; 87045; 87086; 87177; 87493; 93005; 96372; 99251; 99284; J0360; J0692; J1756; J1817; J2405; J3370; J3420; J3480; J7030; J7050; P9016; U0002

== ENCOUNTER 2021-06-12 13:58 | Inpatient (IN) | payer MEDICARE, OTHER ==
[~2021-06-12] VITALS: Ht 160 cm; Wt 59.0 kg
[2021-06-12 14:54] LABS: BASOPHILS % 0.3 % (0.0-1.0); EOSINOPHILS # (AUTO) 0.7 (0.0-0.4); EOSINOPHILS % 5.8 % (0.0-6.0); HEMATOCRIT 46.9 % (38.2-49.6); HEMOGLOBIN 14.1 g/dL (14.0-18.0); LYMPHOCYTES # (AUTO) 2.8 (1.0-3.2); LYMPHOCYTES % 23.6 % (18.0-39.1); MEAN CORPUSCULAR HEMOGLOBIN 27.5 pg (28-32); MEAN CORPUSCULAR HGB CONC 30.1 g/dL (31-35); MEAN CORPUSCULAR VOLUME 91.6 fL (81-99); MONOCYTES # (AUTO) 0.8 (0.2-0.8); NEUTROPHILS # (AUTO) 7.4 (2.1-6.9); NEUTROPHILS % 62.9 % (38.7-80.0); PLATELET COUNT 242 x10e3/uL (140-360); RED BLOOD COUNT 5.12 x10e6/uL (4.3-5.7); RED CELL DISTRIBUTION WIDTH 17.4 % (11.7-14.4)
[2021-06-12 15:06] LABS: INR 0.95; PROTHROMBIN TIME 13.3 seconds (11.9-14.5)
[2021-06-12 15:07] LABS: PARTIAL THROMBOPLASTIN TIME 27.4 seconds (23.8-35.5)
[2021-06-12] MEDS ORDERED: SODIUM CHLORIDE 0.9% 1000ML 1,000 ML IV STA ×2 (15:12)
[2021-06-12 15:20] LABS: ALBUMIN 3.3 g/dL (3.5-5.0); ALBUMIN/GLOBULIN RATIO 0.6 (0.8-2.0); CALCIUM 9.7 mg/dL (8.4-10.2); CREATININE, SERUM 0.69 mg/dL (0.72-1.25)
[2021-06-12 15:23] LABS: CREATINE KINASE MB 2.1 ng/mL (0-5.0)
[2021-06-12 15:24] LABS: B-TYPE NATRIURETIC PEPTIDE2 26.4 pg/mL (0-100)
[2021-06-12] MEDS ORDERED: PIPERACILLIN/TAZOBACTAM 3.375 GM in SODIUM CHLORIDE 0.9% 50ML 50 ML IV ONE (15:30)
[2021-06-12 16:08] LABS: CLARITY,URINE SL CLOUDY (CLEAR); COLOR,URINE YELLOW (YELLOW); KETONES,URINE TRACE (NEGATIVE); LEUKOCYTE ESTERASE ,URINE NEGATIVE (NEGATIVE); NITRITE,URINE NEGATIVE (NEGATIVE); PROTEIN,URINE DIPSTICK NEGATIVE (NEGATIVE); URINE UROBILINOGEN 0.2 mg/dL (0.2 - 1)
[2021-06-12 16:19] LABS: BACTERIA,URINE MODERATE /HPF; RBC,URINE 0-5 /HPF (0-5)
[2021-06-12] MEDS ORDERED: Vancomycin IV 1 GM in SODIUM CHLORIDE 0.9% 250ML 250 ML IV ONE (18:15)
[2021-06-12] MEDS ORDERED: ONDANSETRON HCL INJ 2MG/ML 2ML 2 MG/ML VIAL IV PRN (18:15)
[2021-06-12] MEDS ORDERED: ALBUTEROL/IPRATROPIUM 3 ML NEB NEB PRN (18:15)
[2021-06-12] MEDS: FAMOTIDINE 20 MG/2 ML VIAL IV SCH (18:57)
[2021-06-12] MEDS: SODIUM CHLORIDE 0.9% 1000ML 1,000 ML IV SCH (18:57)
[2021-06-12] MEDS: PIPERACILLIN/TAZOBACTAM 3.375 GM in SODIUM CHLORIDE 0.9% 50ML 50 ML IV SCH (21:57)
[2021-06-12 23:17] VITALS: BP 117/61
[2021-06-13] VITALS (8 sets, daily range): BP systolic 90–125; BP diastolic 50–87
[2021-06-13] MEDS ORDERED: ACETAMINOPHEN 325 MG TAB PEG PRN (01:15)
[2021-06-13 01:29] LABS: CREATINE KINASE MB 1.4 ng/mL (0-5.0)
[2021-06-13] MEDS: PIPERACILLIN/TAZOBACTAM 3.375 GM in SODIUM CHLORIDE 0.9% 50ML 50 ML IV SCH ×4 (02:00→19:57)
[2021-06-13] MEDS: ACETAMINOPHEN 325 MG TAB PEG PRN (02:28)
[2021-06-13] MEDS ORDERED: LOPRESSOR25 MG PEG (03:42)
[2021-06-13] MEDS ORDERED: METFORMIN HCL1000 MG PEG (03:42)
[2021-06-13] MEDS ORDERED: OMEPRAZOLE20 MG PEG (03:42)
[2021-06-13] MEDS: SODIUM CHLORIDE 0.9% 1000ML 1,000 ML IV SCH (04:14)
[2021-06-13] MEDS: FAMOTIDINE 20 MG/2 ML VIAL IV SCH ×2 (06:06→17:43)
[2021-06-13 08:10] LABS: BASOPHILS # (AUTO) 0.1 (0.0-0.1); BASOPHILS % 0.4 % (0.0-1.0); EOSINOPHILS # (AUTO) 0.4 (0.0-0.4); EOSINOPHILS % 2.5 % (0.0-6.0); HEMATOCRIT 41.8 % (38.2-49.6); HEMOGLOBIN 11.6 g/dL (14.0-18.0); LYMPHOCYTES # (AUTO) 2.6 (1.0-3.2); LYMPHOCYTES % 18.9 % (18.0-39.1); MEAN CORPUSCULAR HEMOGLOBIN 27.7 pg (28-32); MEAN CORPUSCULAR HGB CONC 27.8 g/dL (31-35); MEAN CORPUSCULAR VOLUME 99.8 fL (81-99); MONOCYTES # (AUTO) 0.7 (0.2-0.8); MONOCYTES % 4.7 % (4.4-11.3); NEUTROPHILS # (AUTO) 10.1 (2.1-6.9); NEUTROPHILS % 73.1 % (38.7-80.0); PLATELET COUNT 216 x10e3/uL (140-360); RED BLOOD COUNT 4.19 x10e6/uL (4.3-5.7); RED CELL DISTRIBUTION WIDTH 17.5 % (11.7-14.4)
[2021-06-13 08:29] LABS: ALBUMIN 2.4 g/dL (3.5-5.0); ALBUMIN/GLOBULIN RATIO 0.6 (0.8-2.0); ANION GAP 11.3 mmol/L (8-16); CALCIUM 8.1 mg/dL (8.4-10.2); CREATININE, SERUM 0.56 mg/dL (0.72-1.25); POTASSIUM 3.3 mmol/L (3.5-5.1)
[2021-06-13 08:36] LABS: CREATINE KINASE MB 1.3 ng/mL (0-5.0)
[2021-06-13 13:03] LABS: CREATINE KINASE MB 1.3 ng/mL (0-5.0)
[2021-06-13] MEDS ORDERED: LACTATED RINGER'S 1,000 ML INJ SCH (15:15)
[2021-06-13] MEDS: DEXTROSE 5%/0.45% SOD CHL 1,000 ML IV SCH (20:29)
[2021-06-14] VITALS (9 sets, daily range): BP systolic 119–150; BP diastolic 54–86
[2021-06-14] MEDS: PIPERACILLIN/TAZOBACTAM 3.375 GM in SODIUM CHLORIDE 0.9% 50ML 50 ML IV SCH ×4 (01:07→20:50)
[2021-06-14 05:05] LABS: BASOPHILS % 0.5 % (0.0-1.0); EOSINOPHILS # (AUTO) 0.7 (0.0-0.4); EOSINOPHILS % 8.5 % (0.0-6.0); HEMOGLOBIN 10.9 g/dL (14.0-18.0); LYMPHOCYTES # (AUTO) 2.1 (1.0-3.2); LYMPHOCYTES % 24.1 % (18.0-39.1); MEAN CORPUSCULAR HGB CONC 30.3 g/dL (31-35); MEAN CORPUSCULAR VOLUME 89.3 fL (81-99); MONOCYTES # (AUTO) 0.5 (0.2-0.8); MONOCYTES % 6.1 % (4.4-11.3); NEUTROPHILS # (AUTO) 5.2 (2.1-6.9); NEUTROPHILS % 60.6 % (38.7-80.0); PLATELET COUNT 198 x10e3/uL (140-360); RED BLOOD COUNT 4.03 x10e6/uL (4.3-5.7); RED CELL DISTRIBUTION WIDTH 16.4 % (11.7-14.4)
[2021-06-14 05:26] LABS: ALBUMIN 2.3 g/dL (3.5-5.0); ALBUMIN/GLOBULIN RATIO 0.6 (0.8-2.0); ANION GAP 12.3 mmol/L (8-16); CALCIUM 8.1 mg/dL (8.4-10.2); CREATININE, SERUM 0.56 mg/dL (0.72-1.25); POTASSIUM 3.3 mmol/L (3.5-5.1)
[2021-06-14] MEDS: FAMOTIDINE 20 MG/2 ML VIAL IV SCH ×2 (05:54→18:00)
[2021-06-14] MEDS: DEXTROSE 5%/0.45% SOD CHL 1,000 ML IV SCH ×2 (09:35→23:14)
[2021-06-15] VITALS (7 sets, daily range): BP systolic 120–159; BP diastolic 41–83
[2021-06-15] MEDS: PIPERACILLIN/TAZOBACTAM 3.375 GM in SODIUM CHLORIDE 0.9% 50ML 50 ML IV SCH ×4 (03:10→20:42)
[2021-06-15] MEDS: FAMOTIDINE 20 MG/2 ML VIAL IV SCH ×2 (06:01→17:55)
[2021-06-15 08:22] LABS: BASOPHILS % 0.4 % (0.0-1.0); EOSINOPHILS # (AUTO) 0.7 (0.0-0.4); HEMATOCRIT 41.6 % (38.2-49.6); HEMOGLOBIN 13.4 g/dL (14.0-18.0); LYMPHOCYTES # (AUTO) 1.8 (1.0-3.2); LYMPHOCYTES % 23.1 % (18.0-39.1); MEAN CORPUSCULAR HEMOGLOBIN 27.5 pg (28-32); MEAN CORPUSCULAR HGB CONC 32.2 g/dL (31-35); MONOCYTES # (AUTO) 0.6 (0.2-0.8); MONOCYTES % 8.4 % (4.4-11.3); NEUTROPHILS # (AUTO) 4.5 (2.1-6.9); NEUTROPHILS % 58.8 % (38.7-80.0); PLATELET COUNT 189 x10e3/uL (140-360); RED BLOOD COUNT 4.87 x10e6/uL (4.3-5.7); RED CELL DISTRIBUTION WIDTH 15.4 % (11.7-14.4)
[2021-06-15 08:28] LABS: MEAN CORPUSCULAR VOLUME 85.4 fL (81-99)
[2021-06-15 08:42] LABS: ANION GAP 13.4 mmol/L (8-16); BLOOD UREA NITROGEN < 5 mg/dL (7-26); CALCIUM 8.8 mg/dL (8.4-10.2); CARBON DIOXIDE 18 mmol/L (22-29); CHLORIDE 109 mmol/L (98-107); CREATININE, SERUM 0.52 mg/dL (0.72-1.25); EST GLOMERULAR FILTRATION RATE 154 ML/MIN (60-); GLUCOSE 135 mg/dL (74-118); POTASSIUM 3.4 mmol/L (3.5-5.1); SODIUM 137 mmol/L (136-145)
[2021-06-15 08:55] LABS: BUN/CREATININE RATIO 10 (6-25)
[2021-06-15] MEDS: BALSAM PERU/CASTOR OIL 60 GM OINT...G. TP SCH (11:31)
[2021-06-15] MEDS: MUPIROCIN 2% OINT 22 GM TUBE TOP SCH ×2 (15:09→20:52)
[2021-06-15] MEDS: DEXTROSE 5%/0.45% SOD CHL 1,000 ML IV SCH (15:29)
[2021-06-15] MEDS ORDERED: MUPIROCIN 2% OINT 22 GM TUBE TOP SCH (17:00)
[2021-06-15] MEDS ORDERED: DEXTROSE 50% SYRINGE 50 ML IV PRN (17:15)
[2021-06-15] MEDS ORDERED: HYDRALAZINE HCL 20 MG/ML VIAL IV PRN (17:15)
[2021-06-15] MEDS ORDERED: KCL 20 MEQ PACKET/ ORAL SOLN NG ONE (17:45)
[2021-06-15] MEDS: INSULIN REGULAR, HUMAN 100 UNIT/1 ML SQ SCH (18:00)
[2021-06-15] MEDS: ENOXAPARIN SOD INJ 40 MG/0.4 ML SYR SC SCH (18:21)
[2021-06-15] MEDS: DONEPEZIL HCL 5 MG TAB PEG SCH (20:42)
[2021-06-15] MEDS: MIRTAZAPINE 15 MG TAB PEG SCH (20:42)
[2021-06-16] VITALS (8 sets, daily range): BP systolic 110–147; BP diastolic 51–90
[2021-06-16] MEDS: INSULIN REGULAR, HUMAN 100 UNIT/1 ML SQ SCH ×4 (01:01→17:57)
[2021-06-16] MEDS: PIPERACILLIN/TAZOBACTAM 3.375 GM in SODIUM CHLORIDE 0.9% 50ML 50 ML IV SCH ×4 (01:37→20:56)
[2021-06-16] MEDS: DEXTROSE 5%/0.45% SOD CHL 1,000 ML IV SCH ×2 (01:37→17:54)
[2021-06-16] MEDS: FAMOTIDINE 20 MG/2 ML VIAL IV SCH ×2 (06:01→17:54)
[2021-06-16] MEDS: BALSAM PERU/CASTOR OIL 60 GM OINT...G. TP SCH (08:49)
[2021-06-16] MEDS: MUPIROCIN 2% OINT 22 GM TUBE TOP SCH ×2 (08:49→20:56)
[2021-06-16] MEDS: MULTIVITAMINS/MINERALS TAB PEG SCH (09:01)
[2021-06-16] MEDS: METOPROLOL TARTRATE 25 MG TAB PEG SCH ×2 (09:01→17:54)
[2021-06-16] MEDS: CLOPIDOGREL BISULFATE 75 MG TAB PEG SCH (09:01)
[2021-06-16] MEDS: QUETIAPINE FUMARATE 100 MG TAB PEG SCH ×2 (09:01→17:54)
[2021-06-16 09:09] LABS: BASOPHILS % 0.3 % (0.0-1.0); EOSINOPHILS # (AUTO) 0.5 (0.0-0.4); EOSINOPHILS % 5.9 % (0.0-6.0); HEMATOCRIT 44.9 % (38.2-49.6); HEMOGLOBIN 13.6 g/dL (14.0-18.0); LYMPHOCYTES % 21.9 % (18.0-39.1); MEAN CORPUSCULAR HEMOGLOBIN 27.5 pg (28-32); MEAN CORPUSCULAR HGB CONC 30.3 g/dL (31-35); MEAN CORPUSCULAR VOLUME 90.9 fL (81-99); MONOCYTES # (AUTO) 0.7 (0.2-0.8); MONOCYTES % 7.6 % (4.4-11.3); NEUTROPHILS # (AUTO) 5.9 (2.1-6.9); NEUTROPHILS % 64.2 % (38.7-80.0); PLATELET COUNT 246 x10e3/uL (140-360); RED BLOOD COUNT 4.94 x10e6/uL (4.3-5.7); RED CELL DISTRIBUTION WIDTH 15.9 % (11.7-14.4)
[2021-06-16 09:30] LABS: ANION GAP 14.7 mmol/L (8-16); CALCIUM 8.8 mg/dL (8.4-10.2); CREATININE, SERUM 0.58 mg/dL (0.72-1.25); POTASSIUM 3.7 mmol/L (3.5-5.1)
[2021-06-16] MEDS: ENOXAPARIN SOD INJ 40 MG/0.4 ML SYR SC SCH (17:54)
[2021-06-16] MEDS: MIRTAZAPINE 15 MG TAB PEG SCH (20:56)
[2021-06-16] MEDS: DONEPEZIL HCL 5 MG TAB PEG SCH (20:56)
[2021-06-16] MEDS ORDERED: ALBUTEROL/IPRATROPIUM 3 ML NEB NEB ONE (23:15)
[2021-06-17] VITALS (8 sets, daily range): BP systolic 105–146; BP diastolic 47–65
[2021-06-17] MEDS: INSULIN REGULAR, HUMAN 100 UNIT/1 ML SQ SCH ×4 (00:50→18:00)
[2021-06-17] MEDS: PIPERACILLIN/TAZOBACTAM 3.375 GM in SODIUM CHLORIDE 0.9% 50ML 50 ML IV SCH ×4 (02:19→22:54)
[2021-06-17] MEDS: ALBUTEROL/IPRATROPIUM 3 ML NEB NEB SCH ×6 (02:58→23:44)
[2021-06-17] MEDS: DEXTROSE 5%/0.45% SOD CHL 1,000 ML IV SCH ×2 (04:15→18:00)
[2021-06-17] MEDS: FAMOTIDINE 20 MG/2 ML VIAL IV SCH ×2 (05:49→18:17)
[2021-06-17] MEDS ORDERED: IOPAMIDOL 370 MG/ML 200 ML INFUS..BTL INJ ONE (07:21)
[2021-06-17] MEDS ORDERED: SODIUM CHLORIDE 0.9% 50ML 50 ML ONE (07:22)
[2021-06-17] MEDS: BALSAM PERU/CASTOR OIL 60 GM OINT...G. TP SCH (09:37)
[2021-06-17] MEDS: MUPIROCIN 2% OINT 22 GM TUBE TOP SCH ×2 (09:37→22:54)
[2021-06-17] MEDS: QUETIAPINE FUMARATE 100 MG TAB PEG SCH ×2 (09:38→17:00)
[2021-06-17] MEDS: CLOPIDOGREL BISULFATE 75 MG TAB PEG SCH (09:38)
[2021-06-17] MEDS: ATORVASTATIN 20 MG TAB PO SCH (09:38)
[2021-06-17] MEDS: MULTIVITAMINS/MINERALS TAB PEG SCH (09:38)
[2021-06-17] MEDS: ASPIRIN 81 MG CHEW TAB PO SCH (09:38)
[2021-06-17] MEDS ORDERED: SODIUM CHLORIDE 0.9% 1000ML 0 ML ONE (09:41)
[2021-06-17] MEDS: METOPROLOL TARTRATE 25 MG TAB PEG SCH ×2 (09:43→17:00)
[2021-06-17] MEDS ORDERED: GADOBENATE DIMEGLUMINE 0 ML IV ONE (09:50)
[2021-06-17] MEDS: ENOXAPARIN SOD INJ 40 MG/0.4 ML SYR SC SCH (18:17)
[2021-06-17] MEDS: DONEPEZIL HCL 5 MG TAB PEG SCH (22:54)
[2021-06-17] MEDS: MIRTAZAPINE 15 MG TAB PEG SCH (22:54)
[2021-06-18] VITALS (8 sets, daily range): BP systolic 117–139; BP diastolic 52–61
[2021-06-18] MEDS: PIPERACILLIN/TAZOBACTAM 3.375 GM in SODIUM CHLORIDE 0.9% 50ML 50 ML IV SCH ×4 (02:27→21:26)
[2021-06-18] MEDS: INSULIN REGULAR, HUMAN 100 UNIT/1 ML SQ SCH ×4 (02:27→18:00)
[2021-06-18] MEDS: ALBUTEROL/IPRATROPIUM 3 ML NEB NEB SCH ×6 (03:15→22:55)
[2021-06-18] MEDS: FAMOTIDINE 20 MG/2 ML VIAL IV SCH ×2 (05:14→17:40)
[2021-06-18] MEDS: DEXTROSE 5%/0.45% SOD CHL 1,000 ML IV SCH ×2 (05:48→21:27)
[2021-06-18] MEDS: CLOPIDOGREL BISULFATE 75 MG TAB PEG SCH (09:36)
[2021-06-18] MEDS: MULTIVITAMINS/MINERALS TAB PEG SCH (09:36)
[2021-06-18] MEDS: ASPIRIN 81 MG CHEW TAB PO SCH (09:36)
[2021-06-18] MEDS: QUETIAPINE FUMARATE 100 MG TAB PEG SCH ×2 (09:36→17:40)
[2021-06-18] MEDS: ATORVASTATIN 20 MG TAB PO SCH (09:36)
[2021-06-18] MEDS: BALSAM PERU/CASTOR OIL 60 GM OINT...G. TP SCH (09:37)
[2021-06-18] MEDS: MUPIROCIN 2% OINT 22 GM TUBE TOP SCH ×2 (09:37→21:27)
[2021-06-18] MEDS: METOPROLOL TARTRATE 25 MG TAB PEG SCH ×2 (09:38→17:40)
[2021-06-18] MEDS: ENOXAPARIN SOD INJ 40 MG/0.4 ML SYR SC SCH (17:40)
[2021-06-18] MEDS: DONEPEZIL HCL 5 MG TAB PEG SCH (21:27)
[2021-06-18] MEDS: MIRTAZAPINE 15 MG TAB PEG SCH (21:27)
[2021-06-19] VITALS (8 sets, daily range): BP systolic 105–132; BP diastolic 48–63
[2021-06-19] MEDS: PIPERACILLIN/TAZOBACTAM 3.375 GM in SODIUM CHLORIDE 0.9% 50ML 50 ML IV SCH ×4 (01:04→20:06)
[2021-06-19] MEDS: ALBUTEROL/IPRATROPIUM 3 ML NEB NEB SCH ×6 (02:15→23:40)
[2021-06-19] MEDS: FAMOTIDINE 20 MG/2 ML VIAL IV SCH ×2 (05:23→17:17)
[2021-06-19] MEDS: INSULIN REGULAR, HUMAN 100 UNIT/1 ML SQ SCH ×4 (05:26→18:00)
[2021-06-19] MEDS: ASPIRIN 81 MG CHEW TAB PO SCH (09:04)
[2021-06-19] MEDS: CLOPIDOGREL BISULFATE 75 MG TAB PEG SCH (09:04)
[2021-06-19] MEDS: MULTIVITAMINS/MINERALS TAB PEG SCH (09:04)
[2021-06-19] MEDS: ATORVASTATIN 20 MG TAB PO SCH (09:04)
[2021-06-19] MEDS: QUETIAPINE FUMARATE 100 MG TAB PEG SCH ×2 (09:04→16:42)
[2021-06-19] MEDS: METOPROLOL TARTRATE 25 MG TAB PEG SCH ×2 (09:04→16:42)
[2021-06-19] MEDS: MUPIROCIN 2% OINT 22 GM TUBE TOP SCH ×2 (09:05→20:06)
[2021-06-19] MEDS: BALSAM PERU/CASTOR OIL 60 GM OINT...G. TP SCH (09:05)
[2021-06-19] MEDS: DEXTROSE 5%/0.45% SOD CHL 1,000 ML IV SCH (11:44)
[2021-06-19] MEDS: ENOXAPARIN SOD INJ 40 MG/0.4 ML SYR SC SCH (16:42)
[2021-06-19] MEDS: DONEPEZIL HCL 5 MG TAB PEG SCH (20:06)
[2021-06-19] MEDS: MIRTAZAPINE 15 MG TAB PEG SCH (20:06)
[2021-06-20] VITALS (8 sets, daily range): BP systolic 120–167; BP diastolic 53–73
[2021-06-20] MEDS: PIPERACILLIN/TAZOBACTAM 3.375 GM in SODIUM CHLORIDE 0.9% 50ML 50 ML IV SCH ×4 (02:49→20:35)
[2021-06-20] MEDS: DEXTROSE 5%/0.45% SOD CHL 1,000 ML IV SCH ×2 (02:49→12:15)
[2021-06-20] MEDS: INSULIN REGULAR, HUMAN 100 UNIT/1 ML SQ SCH ×4 (02:51→18:00)
[2021-06-20] MEDS: ALBUTEROL/IPRATROPIUM 3 ML NEB NEB SCH ×6 (04:00→23:00)
[2021-06-20] MEDS: FAMOTIDINE 20 MG/2 ML VIAL IV SCH ×2 (06:00→18:00)
[2021-06-20] MEDS: CLOPIDOGREL BISULFATE 75 MG TAB PEG SCH (09:00)
[2021-06-20] MEDS: BALSAM PERU/CASTOR OIL 60 GM OINT...G. TP SCH (09:00)
[2021-06-20] MEDS: ATORVASTATIN 20 MG TAB PO SCH (09:00)
[2021-06-20] MEDS: ASPIRIN 81 MG CHEW TAB PO SCH (09:00)
[2021-06-20] MEDS: METOPROLOL TARTRATE 25 MG TAB PEG SCH ×2 (09:00→17:00)
[2021-06-20] MEDS: MULTIVITAMINS/MINERALS TAB PEG SCH (09:00)
[2021-06-20] MEDS: MUPIROCIN 2% OINT 22 GM TUBE TOP SCH ×2 (09:00→20:35)
[2021-06-20] MEDS: QUETIAPINE FUMARATE 100 MG TAB PEG SCH ×2 (09:00→17:00)
[2021-06-20] MEDS ORDERED: ONDANSETRON HCL 4 MG ORAL DISINTEGRATING TAB PO PRN (09:30)
[2021-06-20] MEDS: ENOXAPARIN SOD INJ 40 MG/0.4 ML SYR SC SCH (17:00)
[2021-06-20] MEDS: MIRTAZAPINE 15 MG TAB PEG SCH (20:35)
[2021-06-20] MEDS: DONEPEZIL HCL 5 MG TAB PEG SCH (20:35)
[2021-06-21] VITALS (26 sets, daily range): BP systolic 68–154; BP diastolic 29–105
[2021-06-21] MEDS: DEXTROSE 5%/0.45% SOD CHL 1,000 ML IV SCH ×2 (01:35→14:28)
[2021-06-21] MEDS ORDERED: ACETAMINOPHEN 650 MG SUPP PR ONE ×2 (03:00→03:09)
[2021-06-21] MEDS ORDERED: ACETAMINOPHEN 1000 MG/100 ML IV STA (03:00)
[2021-06-21] MEDS ORDERED: ACETAMINOPHEN 1000 MG/100 ML 100 ML IV ONE (03:14)
[2021-06-21] MEDS ORDERED: SODIUM CHLORIDE 0.9% 1000ML 1,000 ML IV ONE ×2 (03:15→03:30)
[2021-06-21] MEDS ORDERED: SODIUM CHLORIDE 0.9% 1000ML 1,000 ML ONE ×2 (03:18→12:03)
[2021-06-21 03:42] LABS: ABG HCO3 22 mmol/L (22-26); ABG PCO2 34 mmHg (35-45); ABG PH 7.42 (7.35-7.45); ABG PO2 253 mmHg (80-105); ABG TCO2 23
[2021-06-21 03:51] LABS: CREATINE KINASE MB 0.6 ng/mL (0-5.0)
[2021-06-21] MEDS: PIPERACILLIN/TAZOBACTAM 3.375 GM in SODIUM CHLORIDE 0.9% 50ML 50 ML IV SCH ×5 (03:59→20:23)
[2021-06-21] MEDS: INSULIN REGULAR, HUMAN 100 UNIT/1 ML SQ SCH ×5 (06:40→23:06)
[2021-06-21] MEDS: FAMOTIDINE 20 MG/2 ML VIAL IV SCH ×2 (06:40→17:03)
[2021-06-21] MEDS: ALBUTEROL/IPRATROPIUM 3 ML NEB NEB SCH ×5 (06:55→23:20)
[2021-06-21 07:00] LABS: BASOPHILS % 0.3 % (0.0-1.0); EOSINOPHILS % 0.1 % (0.0-6.0); HEMATOCRIT 44.3 % (38.2-49.6); HEMOGLOBIN 13.1 g/dL (14.0-18.0); LYMPHOCYTES # (AUTO) 1.4 (1.0-3.2); LYMPHOCYTES % 9.3 % (18.0-39.1); MEAN CORPUSCULAR HEMOGLOBIN 27.3 pg (28-32); MEAN CORPUSCULAR HGB CONC 29.6 g/dL (31-35); MEAN CORPUSCULAR VOLUME 92.3 fL (81-99); MONOCYTES # (AUTO) 0.8 (0.2-0.8); MONOCYTES % 5.3 % (4.4-11.3); NEUTROPHILS # (AUTO) 12.5 (2.1-6.9); NEUTROPHILS % 84.9 % (38.7-80.0); PLATELET COUNT 300 x10e3/uL (140-360); RED CELL DISTRIBUTION WIDTH 17.1 % (11.7-14.4)
[2021-06-21 07:37] LABS: ALBUMIN 2.8 g/dL (3.5-5.0); ALBUMIN/GLOBULIN RATIO 0.5 (0.8-2.0); ANION GAP 23.1 mmol/L (8-16); POTASSIUM 5.1 mmol/L (3.5-5.1)
[2021-06-21 07:53] LABS: CALCIUM 9.7 mg/dL (8.4-10.2); CREATININE, SERUM 0.91 mg/dL (0.72-1.25)
[2021-06-21] MEDS: MULTIVITAMINS/MINERALS TAB PEG SCH (09:00)
[2021-06-21] MEDS: ASPIRIN 81 MG CHEW TAB PO SCH (09:00)
[2021-06-21] MEDS: QUETIAPINE FUMARATE 100 MG TAB PEG SCH ×2 (09:00→16:49)
[2021-06-21] MEDS: ATORVASTATIN 20 MG TAB PO SCH (09:00)
[2021-06-21] MEDS: MUPIROCIN 2% OINT 22 GM TUBE TOP SCH ×2 (09:00→21:48)
[2021-06-21] MEDS: METOPROLOL TARTRATE 25 MG TAB PEG SCH ×2 (09:00→16:48)
[2021-06-21] MEDS: CLOPIDOGREL BISULFATE 75 MG TAB PEG SCH (09:00)
[2021-06-21] MEDS: BALSAM PERU/CASTOR OIL 60 GM OINT...G. TP SCH (09:00)
[2021-06-21 09:16] LABS: BAND NEUTROPHILS % (MANUAL) 8 %; LYMPHOCYTES % (MANUAL) 12 % (19-48); MONOCYTES % (MANUAL) 8 % (3.4-9.0); NEUTROPHILS % (MANUAL) 72 % (40-74); PLATELET ESTIMATE ADEQUATE; PLATELET MORPHOLOGY COMMENT NORMAL; RBC MORPHOLOGY COMMENT NORMAL
[2021-06-21] MEDS ORDERED: LACTATED RINGER'S 1,000 ML INJ ONE (12:00)
[2021-06-21] MEDS ORDERED: LACTATED RINGER'S 1,000 ML ONE (12:13)
[2021-06-21] MEDS: NOREPINEPHRINE 8 MG/D5W 250 ML 250 ML IV SCH ×2 (14:27→18:45)
[2021-06-21] MEDS: ENOXAPARIN SOD INJ 40 MG/0.4 ML SYR SC SCH (17:03)
[2021-06-21 17:30] LABS: ABG HCO3 19 mmol/L (22-26); ABG PCO2 25 mmHg (35-45); ABG PH 7.49 (7.35-7.45); ABG PO2 83 mmHg (80-105)
[2021-06-21 17:31] LABS: ABG TCO2 20
[2021-06-21] MEDS: ACETAMINOPHEN 325 MG TAB PEG PRN (21:43)
[2021-06-22] VITALS (22 sets, daily range): BP systolic 106–154; BP diastolic 46–110
[2021-06-22] MEDS: PIPERACILLIN/TAZOBACTAM 3.375 GM in SODIUM CHLORIDE 0.9% 50ML 50 ML IV SCH ×3 (01:51→13:48)
[2021-06-22] MEDS: NOREPINEPHRINE 8 MG/D5W 250 ML 250 ML IV SCH ×2 (01:56→15:19)
[2021-06-22] MEDS: ALBUTEROL/IPRATROPIUM 3 ML NEB NEB SCH ×6 (03:20→23:00)
[2021-06-22] MEDS: DEXTROSE 5%/0.45% SOD CHL 1,000 ML IV SCH ×2 (05:03→16:13)
[2021-06-22] MEDS: ACETAMINOPHEN 325 MG TAB PEG PRN ×2 (05:04→17:24)
[2021-06-22 05:33] LABS: BASOPHILS % 0.3 % (0.0-1.0); EOSINOPHILS # (AUTO) 0.1 (0.0-0.4); EOSINOPHILS % 0.3 % (0.0-6.0); HEMATOCRIT 33.7 % (38.2-49.6); HEMOGLOBIN 10.6 g/dL (14.0-18.0); LYMPHOCYTES # (AUTO) 1.1 (1.0-3.2); LYMPHOCYTES % 7.1 % (18.0-39.1); MEAN CORPUSCULAR HEMOGLOBIN 27.2 pg (28-32); MEAN CORPUSCULAR HGB CONC 31.5 g/dL (31-35); MEAN CORPUSCULAR VOLUME 86.6 fL (81-99); MONOCYTES # (AUTO) 0.4 (0.2-0.8); MONOCYTES % 2.4 % (4.4-11.3); NEUTROPHILS # (AUTO) 13.9 (2.1-6.9); PLATELET COUNT 240 x10e3/uL (140-360); RED BLOOD COUNT 3.89 x10e6/uL (4.3-5.7); RED CELL DISTRIBUTION WIDTH 16.5 % (11.7-14.4)
[2021-06-22 05:53] LABS: ALBUMIN 2.1 g/dL (3.5-5.0); ALBUMIN/GLOBULIN RATIO 0.5 (0.8-2.0); ANION GAP 15.5 mmol/L (8-16); CALCIUM 8.5 mg/dL (8.4-10.2); CREATININE, SERUM 0.64 mg/dL (0.72-1.25); POTASSIUM 3.5 mmol/L (3.5-5.1)
[2021-06-22] MEDS: INSULIN REGULAR, HUMAN 100 UNIT/1 ML SQ SCH ×3 (06:00→17:21)
[2021-06-22] MEDS: FAMOTIDINE 20 MG/2 ML VIAL IV SCH ×2 (06:38→17:21)
[2021-06-22] MEDS: ASPIRIN 81 MG CHEW TAB PO SCH (08:52)
[2021-06-22] MEDS: ATORVASTATIN 20 MG TAB PO SCH (08:52)
[2021-06-22] MEDS: MULTIVITAMINS/MINERALS TAB PEG SCH (08:52)
[2021-06-22] MEDS: MUPIROCIN 2% OINT 22 GM TUBE TOP SCH (08:52)
[2021-06-22] MEDS: CLOPIDOGREL BISULFATE 75 MG TAB PEG SCH (08:52)
[2021-06-22 09:43] LABS: ANISOCYTOSIS SLIGHT; BAND NEUTROPHILS % (MANUAL) 18 %; LYMPHOCYTES % (MANUAL) 4 % (19-48); METAMYELOCYTES % (MANUAL) 3 % (0-0); MONOCYTES % (MANUAL) 2 % (3.4-9.0); NEUTROPHILS % (MANUAL) 73 % (40-74); PLATELET ESTIMATE ADEQUATE; PLATELET MORPHOLOGY COMMENT FEW LARGE; RBC MORPHOLOGY COMMENT NORMAL
[2021-06-22 15:01] LABS: AMYLASE 64 U/L (25-125); LIPASE 14 U/L (8-78)
[2021-06-22] MEDS: BALSAM PERU/CASTOR OIL 60 GM OINT...G. TP SCH (15:12)
[2021-06-22] MEDS ORDERED: POTASSIUM CHLORIDE 20MEQ/100ML 100 ML IV ONE (15:45)
[2021-06-22] MEDS: ENOXAPARIN SOD INJ 40 MG/0.4 ML SYR SC SCH (16:13)
[2021-06-22] MEDS ORDERED: AMIODARONE HCL 150 MG/100 ML BAG IV ONE (18:00)
[2021-06-22] MEDS ORDERED: AMIODARONE HCL 100 ML IV ONE (18:00)
[2021-06-22] MEDS ORDERED: AMIODARONE 900MG 500 ML IV SCH (18:15)
[2021-06-23] VITALS (11 sets, daily range): BP systolic 94–152; BP diastolic 47–101
[2021-06-23] MEDS ORDERED: AMIODARONE 900MG 500 ML IV SCH (00:15)
[2021-06-23] MEDS: DEXTROSE 5%/0.45% SOD CHL 1,000 ML IV SCH ×2 (02:36→20:15)
[2021-06-23] MEDS: ACETAMINOPHEN 1000 MG/100 ML IV PRN ×2 (02:37→13:57)
[2021-06-23 05:50] LABS: BASOPHILS # (AUTO) 0.1 (0.0-0.1); BASOPHILS % 0.9 % (0.0-1.0); EOSINOPHILS # (AUTO) 0.1 (0.0-0.4); EOSINOPHILS % 0.6 % (0.0-6.0); HEMATOCRIT 30.4 % (38.2-49.6); LYMPHOCYTES % 6.2 % (18.0-39.1); MEAN CORPUSCULAR HEMOGLOBIN 27.6 pg (28-32); MEAN CORPUSCULAR HGB CONC 32.9 g/dL (31-35); MONOCYTES # (AUTO) 0.4 (0.2-0.8); MONOCYTES % 2.3 % (4.4-11.3); NEUTROPHILS # (AUTO) 14.1 (2.1-6.9); NEUTROPHILS % 89.6 % (38.7-80.0); PLATELET COUNT 221 x10e3/uL (140-360); RED BLOOD COUNT 3.62 x10e6/uL (4.3-5.7); RED CELL DISTRIBUTION WIDTH 15.9 % (11.7-14.4)
[2021-06-23] MEDS: FAMOTIDINE 20 MG/2 ML VIAL IV SCH ×2 (06:00→17:32)
[2021-06-23] MEDS: INSULIN REGULAR, HUMAN 100 UNIT/1 ML SQ SCH ×4 (06:00→17:33)
[2021-06-23] MEDS: NOREPINEPHRINE 8 MG/D5W 250 ML 250 ML IV SCH (06:55)
[2021-06-23] MEDS: ALBUTEROL/IPRATROPIUM 3 ML NEB NEB SCH ×5 (07:37→23:00)
[2021-06-23] MEDS: CLOPIDOGREL BISULFATE 75 MG TAB PEG SCH (08:16)
[2021-06-23] MEDS: ATORVASTATIN 20 MG TAB PO SCH (08:16)
[2021-06-23] MEDS: ASPIRIN 81 MG CHEW TAB PO SCH (08:16)
[2021-06-23] MEDS: MULTIVITAMINS/MINERALS TAB PEG SCH (08:16)
[2021-06-23] MEDS: BALSAM PERU/CASTOR OIL 60 GM OINT...G. TP SCH (08:37)
[2021-06-23 11:15] LABS: LYMPHOCYTES % (MANUAL) 5 % (19-48); METAMYELOCYTES % (MANUAL) 1 % (0-0); MONOCYTES % (MANUAL) 1 % (3.4-9.0); NEUTROPHILS % (MANUAL) 93 % (40-74); PLATELET ESTIMATE ADEQUATE; PLATELET MORPHOLOGY COMMENT NORMAL; RBC MORPHOLOGY COMMENT NORMAL
[2021-06-23] MEDS ORDERED: ACETAMINOPHEN 1000 MG/100 ML IV PRN (18:00)
[2021-06-24] VITALS: BP 120/70
[2021-06-24] MEDS: ALBUTEROL/IPRATROPIUM 3 ML NEB NEB SCH ×5 (03:00→15:00)
[2021-06-24 03:48] VITALS: BP 147/52
[2021-06-24 05:59] LABS: BASOPHILS # (AUTO) 0.1 (0.0-0.1); BASOPHILS % 0.3 % (0.0-1.0); EOSINOPHILS # (AUTO) 0.2 (0.0-0.4); EOSINOPHILS % 1.2 % (0.0-6.0); HEMATOCRIT 40.4 % (38.2-49.6); HEMOGLOBIN 12.3 g/dL (14.0-18.0); LYMPHOCYTES # (AUTO) 1.2 (1.0-3.2); LYMPHOCYTES % 7.4 % (18.0-39.1); MEAN CORPUSCULAR HEMOGLOBIN 27.2 pg (28-32); MEAN CORPUSCULAR HGB CONC 30.4 g/dL (31-35); MEAN CORPUSCULAR VOLUME 89.4 fL (81-99); MONOCYTES # (AUTO) 0.7 (0.2-0.8); MONOCYTES % 4.2 % (4.4-11.3); NEUTROPHILS # (AUTO) 14.4 (2.1-6.9); NEUTROPHILS % 86.5 % (38.7-80.0); PLATELET COUNT 196 x10e3/uL (140-360); RED BLOOD COUNT 4.52 x10e6/uL (4.3-5.7); RED CELL DISTRIBUTION WIDTH 16.1 % (11.7-14.4)
[2021-06-24 06:29] LABS: ALBUMIN/GLOBULIN RATIO 0.4 (0.8-2.0); ANION GAP 16.1 mmol/L (8-16); CALCIUM 8.7 mg/dL (8.4-10.2); CREATININE, SERUM 0.48 mg/dL (0.72-1.25); POTASSIUM 3.1 mmol/L (3.5-5.1)
[2021-06-24] MEDS: FAMOTIDINE 20 MG/2 ML VIAL IV SCH ×2 (06:29→18:05)
[2021-06-24] MEDS: INSULIN REGULAR, HUMAN 100 UNIT/1 ML SQ SCH ×4 (06:30→17:10)
[2021-06-24] MEDS ORDERED: HYDRALAZINE HCL 20 MG/ML VIAL IV PRN ×2 (06:30→07:45)
[2021-06-24 07:00] VITALS: BP 110/68
[2021-06-24] MEDS: ATORVASTATIN 20 MG TAB PO SCH (09:33)
[2021-06-24] MEDS: ASPIRIN 81 MG CHEW TAB PO SCH (09:33)
[2021-06-24] MEDS: MULTIVITAMINS/MINERALS TAB PEG SCH (09:33)
[2021-06-24] MEDS: BALSAM PERU/CASTOR OIL 60 GM OINT...G. TP SCH (09:33)
[2021-06-24] MEDS: DEXTROSE 5%/0.45% SOD CHL 1,000 ML IV SCH (09:33)
[2021-06-24] MEDS: CLOPIDOGREL BISULFATE 75 MG TAB PEG SCH (09:33)
[2021-06-24] MEDS ORDERED: POTASSIUM CHLORIDE 10MEQ/100ML 100 ML IV ONE ×2 (10:15→11:30)
[2021-06-24] MEDS ORDERED: KCL 20 MEQ PACKET/ ORAL SOLN PO ONE (11:15)
[2021-06-24 11:30] LABS: EOSINOPHILS % (MANUAL) 1 % (0-7); LYMPHOCYTES % (MANUAL) 3 % (19-48); MONOCYTES % (MANUAL) 2 % (3.4-9.0); NEUTROPHILS % (MANUAL) 94 % (40-74); PLATELET ESTIMATE ADEQUATE; PLATELET MORPHOLOGY COMMENT NORMAL; RBC MORPHOLOGY COMMENT NORMAL
[2021-06-24 12:00] VITALS: BP 144/61
[2021-06-24] MEDS: NOREPINEPHRINE 8 MG/D5W 250 ML 250 ML IV SCH (13:45)
[2021-06-24 16:00] VITALS: BP 119/56
[2021-06-24 20:00] VITALS: BP_SYST 116; BP_SYST 119; BP_DIAS 56
[2021-06-25] VITALS (12 sets, daily range): BP systolic 99–120; BP diastolic 48–102
[2021-06-25] MEDS ORDERED: SODIUM CHLORIDE 0.9% 250ML 250 ML IV ONE (01:00)
[2021-06-25] MEDS: PIPERACILLIN/TAZOBACTAM 3.375 GM in SODIUM CHLORIDE 0.9% 50ML 50 ML IV SCH ×3 (01:01→22:30)
[2021-06-25] MEDS: ACETAMINOPHEN 1000 MG/100 ML IV PRN ×2 (01:02→18:13)
[2021-06-25] MEDS: SODIUM CHLORIDE 0.9% 1000ML 1,000 ML IV SCH ×3 (01:03→22:30)
[2021-06-25 01:09] LABS: ANION GAP 12.5 mmol/L (8-16); BLOOD UREA NITROGEN < 5 mg/dL (7-26); CALCIUM 8.4 mg/dL (8.4-10.2); CARBON DIOXIDE 22 mmol/L (22-29); CHLORIDE 103 mmol/L (98-107); CREATININE, SERUM 0.46 mg/dL (0.72-1.25); EST GLOMERULAR FILTRATION RATE 178 ML/MIN (60-); GLUCOSE 129 mg/dL (74-118); POTASSIUM 3.5 mmol/L (3.5-5.1); SODIUM 134 mmol/L (136-145)
[2021-06-25 01:10] LABS: BUN/CREATININE RATIO 11 (6-25)
[2021-06-25] MEDS: FAMOTIDINE 20 MG/2 ML VIAL IV SCH ×2 (05:12→18:05)
[2021-06-25] MEDS: INSULIN REGULAR, HUMAN 100 UNIT/1 ML SQ SCH ×4 (05:26→18:00)
[2021-06-25] MEDS: ALBUTEROL/IPRATROPIUM 3 ML NEB NEB SCH ×6 (07:28→22:47)
[2021-06-25] MEDS: ATORVASTATIN 20 MG TAB PO SCH (08:43)
[2021-06-25] MEDS: ASPIRIN 81 MG CHEW TAB PO SCH (08:43)
[2021-06-25] MEDS: BALSAM PERU/CASTOR OIL 60 GM OINT...G. TP SCH (08:43)
[2021-06-25] MEDS: MULTIVITAMINS/MINERALS TAB PEG SCH (08:43)
[2021-06-25] MEDS: CLOPIDOGREL BISULFATE 75 MG TAB PEG SCH (08:43)
[2021-06-25] MEDS: NOREPINEPHRINE 8 MG/D5W 250 ML 250 ML IV SCH (11:48)
[2021-06-25] MEDS ORDERED: LORAZEPAM INJ 2 MG/ML VIAL IV NR (13:45)
[2021-06-26] VITALS (13 sets, daily range): BP systolic 88–134; BP diastolic 50–81
[2021-06-26] MEDS: ALBUTEROL/IPRATROPIUM 3 ML NEB NEB SCH ×6 (02:18→23:00)
[2021-06-26] MEDS: PIPERACILLIN/TAZOBACTAM 3.375 GM in SODIUM CHLORIDE 0.9% 50ML 50 ML IV SCH ×3 (05:14→22:00)
[2021-06-26] MEDS: INSULIN REGULAR, HUMAN 100 UNIT/1 ML SQ SCH ×4 (05:14→17:38)
[2021-06-26] MEDS: FAMOTIDINE 20 MG/2 ML VIAL IV SCH ×2 (05:14→17:38)
[2021-06-26] MEDS: SODIUM CHLORIDE 0.9% 1000ML 1,000 ML IV SCH (08:49)
[2021-06-26] MEDS ORDERED: Vancomycin IV 1 GM in SODIUM CHLORIDE 0.9% 250ML 250 ML IV ONE (09:15)
[2021-06-26 09:38] LABS: BASOPHILS % 0.3 % (0.0-1.0); EOSINOPHILS # (AUTO) 0.2 (0.0-0.4); EOSINOPHILS % 1.7 % (0.0-6.0); HEMATOCRIT 32.3 % (38.2-49.6); HEMOGLOBIN 10.1 g/dL (14.0-18.0); LYMPHOCYTES # (AUTO) 1.3 (1.0-3.2); LYMPHOCYTES % 13.7 % (18.0-39.1); MEAN CORPUSCULAR HEMOGLOBIN 27.2 pg (28-32); MEAN CORPUSCULAR HGB CONC 31.3 g/dL (31-35); MEAN CORPUSCULAR VOLUME 87.1 fL (81-99); MONOCYTES # (AUTO) 1.2 (0.2-0.8); MONOCYTES % 12.4 % (4.4-11.3); NEUTROPHILS # (AUTO) 6.7 (2.1-6.9); NEUTROPHILS % 71.5 % (38.7-80.0); PLATELET COUNT 266 x10e3/uL (140-360); RED BLOOD COUNT 3.71 x10e6/uL (4.3-5.7)
[2021-06-26 09:43] LABS: ANION GAP 12.6 mmol/L (8-16); BLOOD UREA NITROGEN < 5 mg/dL (7-26); CALCIUM 7.6 mg/dL (8.4-10.2); CARBON DIOXIDE 20 mmol/L (22-29); CHLORIDE 109 mmol/L (98-107); CREATININE, SERUM 0.44 mg/dL (0.72-1.25); EST GLOMERULAR FILTRATION RATE 187 ML/MIN (60-); GLUCOSE 113 mg/dL (74-118); SODIUM 139 mmol/L (136-145)
[2021-06-26 09:44] LABS: BUN/CREATININE RATIO 11 (6-25); POTASSIUM 2.6 mmol/L (3.5-5.1)
[2021-06-26] MEDS: CLOPIDOGREL BISULFATE 75 MG TAB PEG SCH (09:53)
[2021-06-26] MEDS: BALSAM PERU/CASTOR OIL 60 GM OINT...G. TP SCH (09:53)
[2021-06-26] MEDS: ASPIRIN 81 MG CHEW TAB PO SCH (09:53)
[2021-06-26] MEDS: ATORVASTATIN 20 MG TAB PO SCH (09:53)
[2021-06-26] MEDS: MULTIVITAMINS/MINERALS TAB PEG SCH (09:53)
[2021-06-26] MEDS: ACETAMINOPHEN 1000 MG/100 ML IV PRN ×2 (10:08→23:50)
[2021-06-26] MEDS ORDERED: POTASSIUM CHLORIDE 20MEQ/100ML 200 ML IV ONE ×2 (11:00→19:00)
[2021-06-26] MEDS: NOREPINEPHRINE 8 MG/D5W 250 ML 250 ML IV SCH (11:30)
[2021-06-27] VITALS (8 sets, daily range): BP systolic 102–155; BP diastolic 51–78
[2021-06-27] MEDS: ALBUTEROL/IPRATROPIUM 3 ML NEB NEB SCH ×6 (00:10→19:30)
[2021-06-27] MEDS: PIPERACILLIN/TAZOBACTAM 3.375 GM in SODIUM CHLORIDE 0.9% 50ML 50 ML IV SCH ×3 (05:25→21:06)
[2021-06-27] MEDS: FAMOTIDINE 20 MG/2 ML VIAL IV SCH ×2 (05:25→18:17)
[2021-06-27 05:31] LABS: ALANINE AMINOTRANSFERASE 18 IU/L (0-55); ALBUMIN 1.6 g/dL (3.5-5.0); ALBUMIN/GLOBULIN RATIO 0.4 (0.8-2.0); ALKALINE PHOSPHATASE 92 IU/L (40-150); ANION GAP 11.6 mmol/L (8-16); BLOOD UREA NITROGEN < 5 mg/dL (7-26); CALCIUM 7.5 mg/dL (8.4-10.2); CARBON DIOXIDE 24 mmol/L (22-29); CHLORIDE 108 mmol/L (98-107); CREATININE, SERUM 0.47 mg/dL (0.72-1.25); EST GLOMERULAR FILTRATION RATE 173 ML/MIN (60-); GLUCOSE 174 mg/dL (74-118); SODIUM 141 mmol/L (136-145)
[2021-06-27 05:35] LABS: BASOPHILS % 0.3 % (0.0-1.0); EOSINOPHILS # (AUTO) 0.5 (0.0-0.4); EOSINOPHILS % 3.8 % (0.0-6.0); HEMOGLOBIN 9.7 g/dL (14.0-18.0); LYMPHOCYTES # (AUTO) 1.8 (1.0-3.2); MEAN CORPUSCULAR HEMOGLOBIN 27.2 pg (28-32); MEAN CORPUSCULAR HGB CONC 32.3 g/dL (31-35); MONOCYTES # (AUTO) 1.3 (0.2-0.8); MONOCYTES % 10.5 % (4.4-11.3); NEUTROPHILS # (AUTO) 8.9 (2.1-6.9); NEUTROPHILS % 70.4 % (38.7-80.0); PLATELET COUNT 345 x10e3/uL (140-360); RED BLOOD COUNT 3.57 x10e6/uL (4.3-5.7)
[2021-06-27] MEDS: INSULIN REGULAR, HUMAN 100 UNIT/1 ML SQ SCH ×5 (05:46→23:08)
[2021-06-27 05:47] LABS: BUN/CREATININE RATIO 11 (6-25)
[2021-06-27 05:48] LABS: POTASSIUM 2.6 mmol/L (3.5-5.1)
[2021-06-27] MEDS ORDERED: POTASSIUM CHLORIDE 20MEQ/100ML 200 ML IV ONE (07:15)
[2021-06-27] MEDS: BALSAM PERU/CASTOR OIL 60 GM OINT...G. TP SCH (09:09)
[2021-06-27] MEDS: MULTIVITAMINS/MINERALS TAB PEG SCH (09:19)
[2021-06-27] MEDS: CLOPIDOGREL BISULFATE 75 MG TAB PEG SCH (09:19)
[2021-06-27] MEDS: ASPIRIN 81 MG CHEW TAB PO SCH (09:19)
[2021-06-27] MEDS: ATORVASTATIN 20 MG TAB PO SCH (09:19)
[2021-06-27] MEDS: NOREPINEPHRINE 8 MG/D5W 250 ML 250 ML IV SCH (11:57)
[2021-06-27] MEDS: ACETAMINOPHEN 325 MG TAB PO PRN ×2 (13:11→20:15)
[2021-06-28] VITALS (11 sets, daily range): BP systolic 100–145; BP diastolic 65–86
[2021-06-28] MEDS: ALBUTEROL/IPRATROPIUM 3 ML NEB NEB SCH ×5 (03:05→23:00)
[2021-06-28] MEDS: PIPERACILLIN/TAZOBACTAM 3.375 GM in SODIUM CHLORIDE 0.9% 50ML 50 ML IV SCH ×2 (06:15→13:45)
[2021-06-28] MEDS: FAMOTIDINE 20 MG/2 ML VIAL IV SCH ×2 (06:15→17:03)
[2021-06-28] MEDS: INSULIN REGULAR, HUMAN 100 UNIT/1 ML SQ SCH ×4 (06:16→23:52)
[2021-06-28] MEDS: MULTIVITAMINS/MINERALS TAB PEG SCH (08:16)
[2021-06-28] MEDS: CLOPIDOGREL BISULFATE 75 MG TAB PEG SCH (08:16)
[2021-06-28] MEDS: ATORVASTATIN 20 MG TAB PO SCH (08:16)
[2021-06-28] MEDS: ASPIRIN 81 MG CHEW TAB PO SCH (08:16)
[2021-06-28] MEDS: ACETAMINOPHEN 325 MG TAB PO PRN ×2 (13:15→20:00)
[2021-06-28] MEDS: BALSAM PERU/CASTOR OIL 60 GM OINT...G. TP SCH (13:15)
[2021-06-28] MEDS: NOREPINEPHRINE 8 MG/D5W 250 ML 250 ML IV SCH (13:45)
[2021-06-28 15:54] LABS: ANION GAP 11.4 mmol/L (8-16); CALCIUM 7.7 mg/dL (8.4-10.2); CREATININE, SERUM 0.49 mg/dL (0.72-1.25); POTASSIUM 3.4 mmol/L (3.5-5.1)
[2021-06-28] MEDS: ACYCLOVIR SODIUM INJ 500 MG in SODIUM CHLORIDE 0.9% 100 ML 100 ML IV SCH ×2 (16:22→21:45)
[2021-06-29] VITALS: BP 122/76
[2021-06-29] MEDS: ALBUTEROL/IPRATROPIUM 3 ML NEB NEB SCH ×3 (03:00→11:10)
[2021-06-29] MEDS: ACETAMINOPHEN 325 MG TAB PO PRN (03:30)
[2021-06-29 04:00] VITALS: BP 131/79
[2021-06-29] MEDS: INSULIN REGULAR, HUMAN 100 UNIT/1 ML SQ SCH ×3 (06:00→11:41)
[2021-06-29] MEDS: FAMOTIDINE 20 MG/2 ML VIAL IV SCH (06:34)
[2021-06-29] MEDS: ACYCLOVIR SODIUM INJ 500 MG in SODIUM CHLORIDE 0.9% 100 ML 100 ML IV SCH (06:34)
[2021-06-29 08:00] VITALS: BP 112/73
[2021-06-29 09:40] VITALS: BP 131/79
[2021-06-29] MEDS: BALSAM PERU/CASTOR OIL 60 GM OINT...G. TP SCH (10:00)
[2021-06-29] MEDS: CLOPIDOGREL BISULFATE 75 MG TAB PEG SCH (10:00)
[2021-06-29] MEDS: ATORVASTATIN 20 MG TAB PO SCH (10:00)
[2021-06-29] MEDS: MULTIVITAMINS/MINERALS TAB PEG SCH (10:00)
[2021-06-29] MEDS: ASPIRIN 81 MG CHEW TAB PO SCH (10:00)
[2021-06-29] MEDS: NOREPINEPHRINE 8 MG/D5W 250 ML 250 ML IV SCH (11:34)
[2021-06-29 12:00] VITALS: BP 121/72
[2021-06-29] MEDS ORDERED: FAMOTIDINE 20 MG TAB PO SCH (18:00)
== END 2021-06-29 13:05 | disposition hospice, inpatient (51) | DRG 871 ==
LOC: ER 14:06 → ERHOLD 18:18 → MED/SURG2 22:39 → IMCU 06-21 12:23
PROVIDERS: ADMIT Internal Medicine; ATTEND Internal Medicine
PROC: 02HV33Z Insertion of Infusion Device into Superior Vena Cava, Percutaneous Approach (ICD-10-PCS; principal; 2021-06-21)
PROC: 3E043XZ Introduction of Vasopressor into Central Vein, Percutaneous Approach (ICD-10-PCS; 2021-06-21)
DX: A41.9 Sepsis, unspecified organism (principal); G93.41 Metabolic encephalopathy; J69.0 Pneumonitis due to inhalation of food and vomit; G82.50 Quadriplegia, unspecified; R65.21 Severe sepsis with septic shock; E43 Unspecified severe protein-calorie malnutrition; J96.21 Acute and chronic respiratory failure with hypoxia; R64 Cachexia; E87.2 Acidosis; L97.518 Non-pressure chronic ulcer of other part of right foot with other specified severity; M86.8X7 Other osteomyelitis, ankle and foot; L03.115 Cellulitis of right lower limb; Z68.1 Body mass index [BMI] 19.9 or less, adult; E11.52 Type 2 diabetes mellitus with diabetic peripheral angiopathy with gangrene; I96 Gangrene, not elsewhere classified; Z89.612 Acquired absence of left leg above knee; Z86.73 Personal history of transient ischemic attack (TIA), and cerebral infarction without residual deficits; F03.90 Unspecified dementia, unspecified severity, without behavioral disturbance, psychotic disturbance, mood disturbance, and anxiety; F32.A Depression, unspecified; K21.9 Gastro-esophageal reflux disease without esophagitis; E86.0 Dehydration; Z79.899 Other long term (current) drug therapy; E11.621 Type 2 diabetes mellitus with foot ulcer; E11.69 Type 2 diabetes mellitus with other specified complication; E11.628 Type 2 diabetes mellitus with other skin complications; Z87.891 Personal history of nicotine dependence; Z74.01 Bed confinement status; E11.40 Type 2 diabetes mellitus with diabetic neuropathy, unspecified; M10.9 Gout, unspecified; Z86.711 Personal history of pulmonary embolism; E87.6 Hypokalemia; B00.9 Herpesviral infection, unspecified; Z20.822 Contact with and (suspected) exposure to COVID-19
CPT/HCPCS: 36415; 36600; 51700; 70450; 71045; 71046; 71260; 74176; 80048; 80053; 81001; 82150; 82550; 82553; 82805; 82948; 83605; 83690; 83735; 83880; 84484; 84550; 85025; 85610; 85651; 85730; 86141; 87040; 87071; 87086; 87205; 93005; 93925; 93926; 94640; 94799; 96361; 99251; 99285; J0456; J1650; J1817; J2060; J2543; J3370; J3480; J7030; J7050; J7121; J7799; Q9967; U0002